=== PATIENT | female | born 1965 | race Caucasian/White ===

== ENCOUNTER 2018-05-04 11:28 | Inpatient (IN) | payer MEDICAID, OTHER, SELFPAY ==
[2018-05-04] VITALS (24 sets, daily range): BP systolic 80–102; BP diastolic 42–58; PULSE 78–114; RESP 11–20; TEMP 37–39.2; O2SAT 93–100; BMI 23.5
--- NOTE | 2018-05-04 11:44 | DI.RAD.S_ITS ---
PROCEDURE: XR CHEST 1V INDICATIONS: suspected sepsis TECHNIQUE: One view of the chest was acquired. COMPARISON: None. FINDINGS: Surgical changes and devices: None. Lungs and pleura: Ill-defined pulmonary radiopacities are present at the right lung base. There is a small right pleural effusion. The lungs are otherwise clear. Mediastinum: Mediastinal contours appear normal. Heart size is normal. Bones and chest wall: No suspicious bony lesions. Overlying soft tissues appear unremarkable. IMPRESSION: Right pulmonary radiopacities effusion suspicious for pneumonia. Short interval followup is recommended with resolution of the patient's symptoms to ensure there is no underlying pulmonary pathology. Dictated by: Lavern Bauer M.D. on 05/04/2018 at 12:11 Approved by: Lavern Bauer M.D. on 05/04/2018 at 12:12
[2018-05-04 11:51] LABS: Add Manual Diff / Slide Review NO; Basophils Percent Auto 0.2 % (0-2); Eosinophils Percent Auto 0.6 % (2-4); Hematocrit 28.8 % (36-46); Hemoglobin 9.2 g/dL (12.0-16.0); Mean Corpuscular Hemoglobin 24.7 PG (26-34); Mean Corpuscular Volume 77.2 fL (80-100); Monocytes Percent Auto 5.2 % (3-14); Neutrophils Absolute Auto 11400 /uL (3000-5900); Platelet Count 290 X10^3/uL (150-400); Red Blood Cell Count 3.73 X10^6/uL (4.0-5.2)
[2018-05-04 11:58] LABS: INR 1.4 (0.9-1.3); Prothrombin Time 15.3 SECONDS (10.1-12.7)
[2018-05-04 12:01] LABS: PTT Partial Thromboplastin Tim 36 SECONDS (26.4-36.2)
[2018-05-04 12:07] LABS: Lactate (Lactic Acid) 0.7 mmol/L (0.7-2.1)
[2018-05-04 12:08] LABS: Alanine Aminotransferase 20 IU/L (9-52); Albumin 3.3 g/dL (3.5-5.0); Albumin Globulin Ratio 1.1 (1.0-2.8); Alkaline Phosphatase 116 U/L (38-126); Aspartate Aminotransferase 12 IU/L (14-36); BUN Creatinine Ratio 12.3 (6-22); Bilirubin Total 0.4 mg/dL (0.2-1.3); Blood Urea Nitrogen 16 mg/dL (7-17); Calcium 8.3 mg/dL (8.4-10.2); Carbon Dioxide 29 mmol/L (22-32); Chloride 100 mmol/L (98-107); Estimated Glomerular Filt Rate 42.8 mL/min (>60); Globulin 2.9 g/dL (1.7-4.1); Glucose 105 mg/dL (70-100); HEMOLYSIS < 15 (0-50); Potassium 4.6 mmol/L (3.4-5.1); Sodium 139 mmol/L (137-145); Total Protein 6.2 g/dL (6.3-8.2)
[2018-05-04 12:09] LABS: Lipase < 10 U/L (23-300)
[2018-05-04] MEDS: SODIUM CHLORIDE 0.9% 1,000 ML 1000 ML IV (12:15)
[2018-05-04 12:23] LABS: Procalcitonin 0.51 ng/mL (<0.5)
[2018-05-04] MEDS: ACETAMINOPHEN SUSP 160 MG/5 ML UDC 1020 MG PO (12:36)
[2018-05-04 13:19] LABS: Appearance Urine UA CLOUDY; Color Urine UA Yellow; Glucose Urine UA Normal (Normal); Protein Urine UA 1+ (Negative); Specific Gravity Urine UA <1.005 (1.000-1.035); pH Urine UA 6.5 (4.5-8.0)
[2018-05-04 13:20] LABS: Bilirubin Urine UA Negative (NEGATIVE); Ketones Urine UA NEGATIVE (NEGATIVE); Leukocyte Esterase Urine UA 2+ (NEGATIVE); Nitrite Urine UA POSITIVE (Negative); Occult Blood Urine UA 3+ (Negative)
[2018-05-04 13:21] LABS: Amorphous Sediment Urine 1+; Bacteria Urine Many (>30); Culture Indicated Urine Specimen Cultured; Mucus Urine 2+ (Negative); RBC Urine 5-10/HPF (0-5/HPF); Renal Epithelial Cells Urine 1-5/HPF; Squamous Epithelial Cell Urine 1-5 /HPF; WBC Urine >100/HPF (0-5/HPF)
--- NOTE | 2018-05-04 13:31 | ED.SOB ---
HPI - SOB/Dyspnea General Chief Complaint: Shortness of Breath/Dyspnea Stated Complaint: Decreased Stats / Caugh Time Seen by Provider: 05/04/18 13:14 Source: patient and family Mode of arrival: EMS Limitations: no limitations History of Present Illness This is a 53-year-old female who comes to the emergency department with complaint of cough it has been increasingly worse over the last day or 2. She has had decreased oxygen level. No fevers that she is aware of. She has had some mild headaches and neck pain but not severe. She denies any chest pain or pressure but does feel short of breath. She denies any nausea or vomiting. She does have a J tube in place denies any issues with her J tube recently. Patient has not had any signs of infection around that site. She is denying any abdominal pain although she states that she does sometimes have pain when she has problems with her Eisenberg catheter. She has not noticed any changes to the urine out put from her catheter such as blood or clots or purulent changes. Does not appeared more cloudy. No issues of skin breakdown. 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 Related Data Home Medications Medication Instructions Recorded Confirmed acetaminophen 1 - 2 tab FEEDING TUBE PRN PRN MDD 05/04/18 05/04/18 3000 mg elgmeit-ffskegcovrlvb-acrbtqgi 2 tab FEEDING TUBE DAILY PRN 05/04/18 05/04/18 [Excedrin Migraine] cetirizine 1 tab FEEDING TUBE DAILY PRN 05/04/18 05/04/18 dextromethorphan-guaifenesin 10 ml FEEDING TUBE Q4H PRN 05/04/18 05/04/18 [Tussin DM] diclofenac sodium 2 g TOPICAL TID PRN 05/04/18 05/04/18 fluticasone furoate 1 spray INTRANASAL DAILY PRN 05/04/18 05/04/18 levothyroxine 1 tab FEEDING TUBE DAILY 05/04/18 05/04/18 loperamide 2 cap FEEDING TUBE Q4H PRN MDD 16 05/04/18 05/04/18 MG methadone 15 mg FEEDING TUBE TID 05/04/18 05/04/18 miconazole nitrate 1 applic VAGINAL PRN PRN 05/04/18 05/04/18 miconazole nitrate [Shayna 1 applic TOPICAL 3-4XD 05/04/18 05/04/18 Antifungal] ondansetron 1 tab FEEDING TUBE PRN PRN 05/04/18 05/04/18 oxycodone 1 - 2 tab FEEDING TUBE Q3H PRN MDD 05/04/18 05/04/18 8 tabs polyethylene glycol 3350 [Miralax] 8.5 g FEEDING TUBE DAILY PRN 05/04/18 05/04/18 pregabalin [Lyrica] 1 cap FEEDING TUBE TID 05/04/18 05/04/18 sertraline 7.5 ml FEEDING TUBE QPM 05/04/18 05/04/18 thiamine HCl (vitamin B1) 100 mg FEEDING TUBE DAILY 05/04/18 05/04/18 trazodone 1 tab FEEDING TUBE BEDTIME 05/04/18 05/04/18 water 100 ml PO QID 05/04/18 05/04/18 Allergies Allergy/AdvReac Type Severity Reaction Status Date / Time clindamycin Allergy Severe Anaphylaxis Verified 05/04/18 12:34 Penicillins Allergy Severe Anaphylaxis Verified 05/04/18 12:33 Review of Systems Review of Systems All systems reviewed & are unremarkable except as noted in HPI and below Constitutional Denies chills, Denies fever(s), Reports headache(s) and Denies weakness ENT Ears, Nose, Mouth, and Throat: Reports headache(s), Denies nasal discharge and Reports neck pain (mild per patient) Cardiovascular Denies chest pain, Denies irregular heart rhythm, Denies lightheadedness, Denies palpitations, Denies dyspnea, Denies dyspnea on exertion and Denies orthopnea Respiratory Reports chest congestion, Reports cough, Denies hemoptysis, Denies excessive phlegm production, Denies pain on inspiration, Denies dyspnea, Denies dyspnea on exertion and Denies wheezing Gastrointestinal Gastrointestinal: Denies abdominal pain, Denies change in bowel habits, Denies diarrhea, Denies nausea, Denies vomiting and Reports other (J tube in place, no problems.) Genitourinary Denies hematuria, Denies pelvic pain and Reports other (no changes to eisenberg catheter drainage) Musculoskeletal Reports neck pain (mild per patient) Integumentary/Breasts Denies rash Neurologic Denies confusion, Reports headache(s) and Denies weakness Psychiatric Denies confusion Endocrine Denies palpitations Allergic/Immunologic Denies wheezing PFSH Medical History Bowel obstruction (Acute) Creutzfeldt Evans disease (Acute) H/O: hysterectomy (Acute) Hypothyroid (Acute) Jejunostomy tube present (Acute) Ovarian cancer (Acute) Reflux esophagitis (Acute) Uterine cancer (Acute) Surgical History H/O fasciotomy (Acute) H/O left knee surgery (Acute) Social History details: Lives in Adult Care facility Smoking Status: Former smoker alcohol intake: never Exam Narrative Exam Narrative: GENERAL: Alert and oriented x three, well-nourished female in mild distress. HEENT: Head normocephalic, atraumatic, EOMI, pupils reactive, face symmetric, moist mucous membranes, patient has nasal cannula in place. NECK: Supple, full range of motion, no meningeal signs. CARDIOVASCULAR: Regular rate and rhythm without murmurs, rubs or gallops. RESPIRATORY: Breath sounds equal bilaterally, no wheeze, positive crackles on the right base, no rhonchi. No tachypnea. Patient speaks in short sentences. ABDOMEN: Soft, nontender. Normoactive bowel sounds all 4 quadrants. No guarding or rebound, rigidity, no mass. Patient has a J-tube in place, there is no signs of erythema or cellulitis from the surrounding area. : No CVA tenderness, Eisenberg catheter in place draining yellow somewhat dark urine but not cloudy over signs of purulent EXTREMITIES: Normal range of motion, no clubbing or edema. Neurovascularly intact NEUROLOGICAL: Cranial nerves II through XII grossly intact. Moving all extremities. Patient has atrophy of the lower extremities and feet. She does not have full range of motion of her feet. SKIN: Warm, dry, no petechiae, no rashes or lesions. Initial Vital Signs Initial Vital Signs: Vital Signs Temperature 102.5 F H 05/04/18 11:34 Pulse Rate 107 H 05/04/18 11:34 Respiratory Rate 18 05/04/18 11:34 Blood Pressure 98/49 L 05/04/18 11:34 Pulse Oximetry 93 05/04/18 11:34 Course Orders Ordered: ED Orders 05/04/18 11:40 Complete Blood Count AUTO DIFF Stat Comprehensive Metabolic Panel Stat Lactate (Lactic Acid) Stat Lipase Stat Partial Thromboplastin Time Stat Procalcitonin Stat Prothrombin Time INR Stat 05/04/18 11:44 XR chest 1V Stat 05/04/18 12:01 Blood Culture Stat 05/04/18 12:11 EKG-12 Lead Stat 05/04/18 13:00 UA Complete [Urinalysis and Microscopic] Stat Urine Culture Stat 05/04/18 18:31 Consult to Pastoral Services Routine Sodium Chloride (Normal Saline 0.9%) 2,041.17 mls @ 680.39 mls/hr 30 ml/kg infuse over 3 hr (2041.17 ml) IV CONT DEBO Last Infusion: 05/04/18 17:04 Dose: 150 mls/hr Infusion: 05/04/18 15:17 Dose: 150 mls/hr Infusion: 05/04/18 15:07 Dose: 680 mls/hr Infusion: 05/04/18 14:09 Dose: 999 mls/hr Admin: 05/04/18 13:49 Dose: 680.39 mls/hr Oxycodone/Acetaminophen (Percocet 5/325) 1 tab PO Q4HR PRN PRN Reason: Pain, Moderate (4-6) Discontinued Medications Acetaminophen (Tylenol Susp) 1,020 mg 15 mg/kg (1020 mg) PO NOW ONE Stop: 05/04/18 12:35 Last Admin: 05/04/18 12:36 Dose: 1,020 mg Sodium Chloride (Normal Saline 0.9%) 1,000 mls @ 1,000 mls/hr IV BOLUS ONE Stop: 05/04/18 12:43 Last Infusion: 05/04/18 13:18 Dose: 0 mls/hr Admin: 05/04/18 12:15 Dose: 1,000 mls/hr Levofloxacin (Levaquin) 750 mg in 150 mls @ 100 mls/hr IV NOW ONE Stop: 05/04/18 15:03 Last Infusion: 05/04/18 15:35 Dose: 0 mls/hr Admin: 05/04/18 13:54 Dose: 100 mls/hr Oxycodone HCl (Percolone) 10 mg PO NOW ONE Stop: 05/04/18 13:40 Last Admin: 05/04/18 14:59 Dose: Vital Signs - 8 hr 05/04/18 12:00 05/04/18 12:30 05/04/18 12:36 Temperature 102.5 F H Pulse Rate 96 H 103 H Respiratory Rate 14 17 Blood Pressure Blood Pressure [Left Arm] 89/53 L 87/50 L Pulse Oximetry 93 96 05/04/18 12:46 05/04/18 13:00 05/04/18 13:30 Temperature Pulse Rate 93 H 92 H 90 Respiratory Rate 11 L 14 15 Blood Pressure Blood Pressure [Left Arm] 87/50 L 90/45 L 85/46 L Pulse Oximetry 96 96 97 05/04/18 14:08 05/04/18 14:09 05/04/18 14:15 Temperature 99.9 F H 99.9 F H Pulse Rate 83 82 Respiratory Rate 20 15 Blood Pressure Blood Pressure [Left Arm] 81/42 L 82/51 L Pulse Oximetry 94 98 05/04/18 14:17 05/04/18 14:30 05/04/18 14:43 Temperature Pulse Rate 87 80 82 Respiratory Rate 15 16 17 Blood Pressure Blood Pressure [Left Arm] 82/51 L 86/54 L 86/54 L Pulse Oximetry 98 99 99 05/04/18 15:16 05/04/18 16:00 05/04/18 16:04 Temperature Pulse Rate 80 78 79 Respiratory Rate 11 L 18 Blood Pressure Blood Pressure [Left Arm] 80/49 L 82/52 L 82/52 L Pulse Oximetry 100 98 05/04/18 16:30 05/04/18 17:00 05/04/18 17:05 Temperature Pulse Rate 98 H 97 H 114 H Respiratory Rate 15 16 16 Blood Pressure Blood Pressure [Left Arm] 86/55 L 87/52 L 87/52 L Pulse Oximetry 100 95 93 05/04/18 19:23 Temperature 98.6 F Pulse Rate 85 Respiratory Rate 16 Blood Pressure 95/56 L Blood Pressure [Left Arm] Pulse Oximetry 100 MDM - SOB/Dyspnea Lab Data Attestation: I reviewed the patient's lab results. Result diagrams: 05/04/18 11:40 05/04/18 11:40 Lab Results 05/04/18 05/04/18 05/04/18 Range/Units 11:40 11:40 11:40 WBC 13.0 H (4.5-11.0) X10^3/uL RBC 3.73 L (4.0-5.2) X10^6/uL Hgb 9.2 L (12.0-16.0) g/dL Hct 28.8 L (36-46) % MCV 77.2 L (80-100) fL MCH 24.7 L (26-34) PG MCHC 32.0 (30-36) % RDW 16.0 H (11.6-14.8) % Plt Count 290 (150-400) X10^3/uL Neut % (Auto) 88.0 H (50-75) % Lymph % (Auto) 6.0 L (25-40) % [place] % (Auto) 5.2 (3-14) % Eos % (Auto) 0.6 L (2-4) % Baso % (Auto) 0.2 (0-2) % Neut # (Auto) 61755 H (2161-3009) /uL PT 15.3 H (10.1-12.7) SECONDS INR 1.4 H (0.9-1.3) APTT 36 (26.4-36.2) SECONDS Sodium (137-145) mmol/L Potassium (3.4-5.1) mmol/L Chloride (98-107) mmol/L Carbon Dioxide (22-32) mmol/L BUN (7-17) mg/dL Creatinine (0.52-1.04) mg/dL Estimated GFR (>60) mL/min BUN/Creatinine Ratio (6-22) Glucose (70-100) mg/dL Lactate (0.7-2.1) mmol/L Calcium (8.4-10.2) mg/dL Total Bilirubin (0.2-1.3) mg/dL AST (14-36) IU/L ALT (9-52) IU/L Alkaline Phosphatase (38-126) U/L Total Protein (6.3-8.2) g/dL Albumin (3.5-5.0) g/dL Globulin (1.7-4.1) g/dL Albumin/Globulin Ratio (1.0-2.8) Lipase (23-300) U/L Procalcitonin 0.51 H (<0.5) ng/mL Urine Color Urine Appearance Urine pH (4.5-8.0) Ur Specific [place] (1.000-1.035) Urine Protein (Negative) Urine Glucose (UA) (Normal) g/dL Urine Ketones (NEGATIVE) Urine Occult Blood (Negative) Urine Nitrate (Negative) Urine Bilirubin (NEGATIVE) Urine Urobilinogen (0.2) E.U./dL Ur Leukocyte Esterase (NEGATIVE) Urine RBC (0-5/HPF) Urine WBC (0-5/HPF) Ur Squamous Epith Cells Ur Renal Epithelial Cell Amorphous Sediment Urine Bacteria (None) Urine Mucus (Negative) Ur Culture Indicated? Micro UA Comment 05/04/18 05/04/18 05/04/18 Range/Units 11:40 11:40 13:00 WBC (4.5-11.0) X10^3/uL RBC (4.0-5.2) X10^6/uL Hgb (12.0-16.0) g/dL Hct (36-46) % MCV (80-100) fL MCH (26-34) PG MCHC (30-36) % RDW (11.6-14.8) % Plt Count (150-400) X10^3/uL Neut % (Auto) (50-75) % Lymph % (Auto) (25-40) % [place] % (Auto) (3-14) % Eos % (Auto) (2-4) % Baso % (Auto) (0-2) % Neut # (Auto) (9334-3289) /uL PT (10.1-12.7) SECONDS INR (0.9-1.3) APTT (26.4-36.2) SECONDS Sodium 139 (137-145) mmol/L Potassium 4.6 (3.4-5.1) mmol/L Chloride 100 (98-107) mmol/L Carbon Dioxide 29 (22-32) mmol/L BUN 16 (7-17) mg/dL Creatinine 1.30 H (0.52-1.04) mg/dL Estimated GFR 42.8 L (>60) mL/min BUN/Creatinine Ratio 12.3 (6-22) Glucose 105 H (70-100) mg/dL Lactate 0.7 (0.7-2.1) mmol/L Calcium 8.3 L (8.4-10.2) mg/dL Total Bilirubin 0.4 (0.2-1.3) mg/dL AST 12 L (14-36) IU/L ALT 20 (9-52) IU/L Alkaline Phosphatase 116 (38-126) U/L Total Protein 6.2 L (6.3-8.2) g/dL Albumin 3.3 L (3.5-5.0) g/dL Globulin 2.9 (1.7-4.1) g/dL Albumin/Globulin Ratio 1.1 (1.0-2.8) Lipase < 10 L (23-300) U/L Procalcitonin (<0.5) ng/mL Urine Color Yellow Urine Appearance Cloudy Urine pH 6.5 (4.5-8.0) Ur Specific [place] <1.005 (1.000-1.035) Urine Protein 1+ H (Negative) Urine Glucose (UA) Normal (Normal) g/dL Urine Ketones Negative (NEGATIVE) Urine Occult Blood 3+ H (Negative) Urine Nitrate Positive H (Negative) Urine Bilirubin Negative (NEGATIVE) Urine Urobilinogen 1.0 (0.2) E.U./dL Ur Leukocyte Esterase 2+ H (NEGATIVE) Urine RBC 5-10/hpf H (0-5/HPF) Urine WBC >100/hpf H (0-5/HPF) Ur Squamous Epith Cells 1-5 /hpf Ur Renal Epithelial Cell 1-5/hpf Amorphous Sediment 1+ Urine Bacteria Many (>30) H (None) Urine Mucus 2+ H (Negative) Ur Culture Indicated? Specimen cultured Micro UA Comment Not Reportable Imaging Data Chest x-ray: Radiologist's impression: [address] [id number] XRay Report Signed Patient: Castillo Sanders RMR#: [id number] : 1965Acct:[id number] Age/Sex: 53 / FDate of Service: 05/04/18 Loc: ED Accession Number: [id number] Procedure: XR chest 1V Ordering Provider: Maribel Maldonado D.O. PROCEDURE: XR CHEST 1V INDICATIONS: suspected sepsis TECHNIQUE: One view of the chest was acquired. COMPARISON: None. FINDINGS: Surgical changes and devices: None. Lungs and pleura: Ill-defined pulmonary radiopacities are present at the right lung base. There is a small right pleural effusion. The lungs are otherwise clear. Mediastinum: Mediastinal contours appear normal. Heart size is normal. Bones and chest wall: No suspicious bony lesions. Overlying soft tissues appear unremarkable. IMPRESSION: Right pulmonary radiopacities effusion suspicious for pneumonia. Short interval followup is recommended with resolution of the patient's symptoms to ensure there is no underlying pulmonary pathology. Dictated by: Lavern Bauer M.D. on 05/04/2018 at 12:11 Approved by: Lavern Bauer M.D. on 05/04/2018 at 12:12 ECG Data Attestation: I personally reviewed and interpreted this ECG as follows: Interpretation: Sinus rhythm with short P are, rate of 96, DC 93, QRS of 86 and QTC of 419. No ST changes appreciated MDM Narrative Medical decision making narrative: Patient does have an elevated white count although not quite meeting septic criteria. She does have a fever in the department her heart rate was above 90 at 1 point although has been consistently in the 80s. Her blood pressure is low in the 80s although according to her and her people at bedside her normal systolic is about 100-105. Patient does not appear toxic at this time and seems to be tolerating her symptoms well. She responded to oxygen well and was 88% with EMS prior to oxygen and initially on arrival to department. Patient had antibiotics started, Tylenol for fever. She has received a 30 cc/kilos fluids and plan for admission. Spoke with Dr. Hall who except patient plan for floor at this time which I think is appropriate. Discharge Plan Departure Patient Disposition: Admitted As Inpatient Clinical Impression: Sepsis, Pneumonia Discharge Date/Time: 05/04/18 17:24 Interventions: ED Discharge Assessment Last Done: 05/04/18 17:06 Admit Date/Time: 05/04/18 15:03 Admit Provider: Cass Hall
--- NOTE | 2018-05-04 13:39 | ED_ITS ---
HPI - SOB/Dyspnea General Chief Complaint: Shortness of Breath/Dyspnea Stated Complaint: Decreased Stats / Caugh Time Seen by Provider: 05/04/18 13:14 Source: patient and family Mode of arrival: EMS Limitations: no limitations History of Present Illness This is a 53-year-old female who comes to the emergency department with complaint of cough it has been increasingly worse over the last day or 2. She has had decreased oxygen level. No fevers that she is aware of. She has had some mild headaches and neck pain but not severe. She denies any chest pain or pressure but does feel short of breath. She denies any nausea or vomiting. She does have a J tube in place denies any issues with her J tube recently. Patient has not had any signs of infection around that site. She is denying any abdominal pain although she states that she does sometimes have pain when she has problems with her Eisenberg catheter. She has not noticed any changes to the urine out put from her catheter such as blood or clots or purulent changes. Does not appeared more cloudy. No issues of skin breakdown. 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 Related Data Home Medications Medication Instructions Recorded Confirmed acetaminophen 1 - 2 tab FEEDING TUBE PRN PRN MDD 05/04/18 05/04/18 3000 mg ydajxsj-elvqevsbgnmwo-gzrglhou 2 tab FEEDING TUBE DAILY PRN 05/04/18 05/04/18 [Excedrin Migraine] cetirizine 1 tab FEEDING TUBE DAILY PRN 05/04/18 05/04/18 dextromethorphan-guaifenesin 10 ml FEEDING TUBE Q4H PRN 05/04/18 05/04/18 [Tussin DM] diclofenac sodium 2 g TOPICAL TID PRN 05/04/18 05/04/18 fluticasone furoate 1 spray INTRANASAL DAILY PRN 05/04/18 05/04/18 levothyroxine 1 tab FEEDING TUBE DAILY 05/04/18 05/04/18 loperamide 2 cap FEEDING TUBE Q4H PRN MDD 16 05/04/18 05/04/18 MG methadone 15 mg FEEDING TUBE TID 05/04/18 05/04/18 miconazole nitrate 1 applic VAGINAL PRN PRN 05/04/18 05/04/18 miconazole nitrate [Shayna 1 applic TOPICAL 3-4XD 05/04/18 05/04/18 Antifungal] ondansetron 1 tab FEEDING TUBE PRN PRN 05/04/18 05/04/18 oxycodone 1 - 2 tab FEEDING TUBE Q3H PRN MDD 05/04/18 05/04/18 8 tabs polyethylene glycol 3350 [Miralax] 8.5 g FEEDING TUBE DAILY PRN 05/04/18 pregabalin [Lyrica] 1 cap FEEDING TUBE TID 05/04/18 05/04/18 sertraline 7.5 ml FEEDING TUBE QPM 05/04/18 05/04/18 thiamine HCl (vitamin B1) 100 mg FEEDING TUBE DAILY 05/04/18 05/04/18 trazodone 1 tab FEEDING TUBE BEDTIME 05/04/18 05/04/18 water 100 ml PO QID 05/04/18 05/04/18 Allergies Allergy/AdvReac Type Severity Reaction Status Date / Time clindamycin Allergy Severe Anaphylaxis Verified 05/04/18 12:34 Penicillins Allergy Severe Anaphylaxis Verified 05/04/18 12:33 Review of Systems Review of Systems All systems reviewed & are unremarkable except as noted in HPI and below Constitutional Denies chills, Denies fever(s), Reports headache(s) and Denies weakness ENT Ears, Nose, Mouth, and Throat: Reports headache(s), Denies nasal discharge and Reports neck pain (mild per patient) Cardiovascular Denies chest pain, Denies irregular heart rhythm, Denies lightheadedness, Denies palpitations, Denies dyspnea, Denies dyspnea on exertion and Denies orthopnea Respiratory Reports chest congestion, Reports cough, Denies hemoptysis, Denies excessive phlegm production, Denies pain on inspiration, Denies dyspnea, Denies dyspnea on exertion and Denies wheezing Gastrointestinal Gastrointestinal: Denies abdominal pain, Denies change in bowel habits, Denies diarrhea, Denies nausea, Denies vomiting and Reports other (J tube in place, no problems.) Genitourinary Denies hematuria, Denies pelvic pain and Reports other (no changes to eisenberg catheter drainage) Musculoskeletal Reports neck pain (mild per patient) Integumentary/Breasts Denies rash Neurologic Denies confusion, Reports headache(s) and Denies weakness Psychiatric Denies confusion Endocrine Denies palpitations Allergic/Immunologic Denies wheezing PFSH Medical History Bowel obstruction (Acute) Creutzfeldt Evans disease (Acute) H/O: hysterectomy (Acute) Hypothyroid (Acute) Jejunostomy tube present (Acute) Ovarian cancer (Acute) Reflux esophagitis (Acute) Uterine cancer (Acute) Surgical History H/O fasciotomy (Acute) H/O left knee surgery (Acute) Social History details: Lives in Adult Care facility Smoking Status: Former smoker alcohol intake: never Exam Narrative Exam Narrative: GENERAL: Alert and oriented x three, well-nourished female in mild distress. HEENT: Head normocephalic, atraumatic, EOMI, pupils reactive, face symmetric, moist mucous membranes, patient has nasal cannula in place. NECK: Supple, full range of motion, no meningeal signs. CARDIOVASCULAR: Regular rate and rhythm without murmurs, rubs or gallops. RESPIRATORY: Breath sounds equal bilaterally, no wheeze, positive crackles on the right base, no rhonchi. No tachypnea. Patient speaks in short sentences. ABDOMEN: Soft, nontender. Normoactive bowel sounds all 4 quadrants. No guarding or rebound, rigidity, no mass. Patient has a J-tube in place, there is no signs of erythema or cellulitis from the surrounding area. : No CVA tenderness, Eisenberg catheter in place draining yellow somewhat dark urine but not cloudy over signs of purulent EXTREMITIES: Normal range of motion, no clubbing or edema. Neurovascularly intact NEUROLOGICAL: Cranial nerves II through XII grossly intact. Moving all extremities. Patient has atrophy of the lower extremities and feet. She does not have full range of motion of her feet. SKIN: Warm, dry, no petechiae, no rashes or lesions. Initial Vital Signs Initial Vital Signs: Vital Signs Temperature 102.5 F H 05/04/18 11:34 Pulse Rate 107 H 05/04/18 11:34 Respiratory Rate 18 05/04/18 11:34 Blood Pressure 98/49 L 05/04/18 11:34 Pulse Oximetry 93 05/04/18 11:34 Course Orders Ordered: ED Orders 05/04/18 11:40 Complete Blood Count AUTO DIFF Stat Comprehensive Metabolic Panel Stat Lactate (Lactic Acid) Stat Lipase Stat Partial Thromboplastin Time Stat Procalcitonin Stat Prothrombin Time INR Stat 05/04/18 11:44 XR chest 1V Stat 05/04/18 12:01 Blood Culture Stat 05/04/18 12:11 EKG-12 Lead Stat 05/04/18 13:00 UA Complete [Urinalysis and Microscopic] Stat Urine Culture Stat 05/04/18 18:31 Consult to Pastoral Services Routine Sodium Chloride (Normal Saline 0.9%) 2,041.17 mls @ 680.39 mls/hr 30 ml/kg infuse over 3 hr (2041.17 ml) IV CONT DEBO Last Infusion: 05/04/18 17:04 Dose: 150 mls/hr Infusion: 05/04/18 15:17 Dose: 150 mls/hr Infusion: 05/04/18 15:07 Dose: 680 mls/hr Infusion: 05/04/18 14:09 Dose: 999 mls/hr Admin: 05/04/18 13:49 Dose: 680.39 mls/hr Oxycodone/Acetaminophen (Percocet 5/325) 1 tab PO Q4HR PRN PRN Reason: Pain, Moderate (4-6) Discontinued Medications Acetaminophen (Tylenol Susp) 1,020 mg 15 mg/kg (1020 mg) PO NOW ONE Stop: 05/04/18 12:35 Last Admin: 05/04/18 12:36 Dose: 1,020 mg Sodium Chloride (Normal Saline 0.9%) 1,000 mls @ 1,000 mls/hr IV BOLUS ONE Stop: 05/04/18 12:43 Last Infusion: 05/04/18 13:18 Dose: 0 mls/hr Admin: 05/04/18 12:15 Dose: 1,000 mls/hr Levofloxacin (Levaquin) 750 mg in 150 mls @ 100 mls/hr IV NOW ONE Stop: 05/04/18 15:03 Last Infusion: 05/04/18 15:35 Dose: 0 mls/hr Admin: 05/04/18 13:54 Dose: 100 mls/hr Oxycodone HCl (Percolone) 10 mg PO NOW ONE Stop: 05/04/18 13:40 Last Admin: 05/04/18 14:59 Dose: Vital Signs - 8 hr 05/04/18 12:00 05/04/18 12:30 05/04/18 12:36 Temperature 102.5 F H Pulse Rate 96 H 103 H Respiratory Rate 14 17 Blood Pressure Blood Pressure [Left Arm] 89/53 L 87/50 L Pulse Oximetry 93 96 05/04/18 12:46 05/04/18 13:00 05/04/18 13:30 Temperature Pulse Rate 93 H 92 H 90 Respiratory Rate 11 L 14 15 Blood Pressure Blood Pressure [Left Arm] 87/50 L 90/45 L 85/46 L Pulse Oximetry 96 96 97 05/04/18 14:08 05/04/18 14:09 05/04/18 14:15 Temperature 99.9 F H 99.9 F H Pulse Rate 83 82 Respiratory Rate 20 15 Blood Pressure Blood Pressure [Left Arm] 81/42 L 82/51 L Pulse Oximetry 94 98 05/04/18 14:17 05/04/18 14:30 05/04/18 14:43 Temperature Pulse Rate 87 80 82 Respiratory Rate 15 16 17 Blood Pressure Blood Pressure [Left Arm] 82/51 L 86/54 L 86/54 L Pulse Oximetry 98 99 99 05/04/18 15:16 05/04/18 16:00 05/04/18 16:04 Temperature Pulse Rate 80 78 79 Respiratory Rate 11 L 18 Blood Pressure Blood Pressure [Left Arm] 80/49 L 82/52 L 82/52 L Pulse Oximetry 100 98 05/04/18 16:30 05/04/18 17:00 05/04/18 17:05 Temperature Pulse Rate 98 H 97 H 114 H Respiratory Rate 15 16 16 Blood Pressure Blood Pressure [Left Arm] 86/55 L 87/52 L 87/52 L Pulse Oximetry 100 95 93 05/04/18 19:23 Temperature 98.6 F Pulse Rate 85 Respiratory Rate 16 Blood Pressure 95/56 L Blood Pressure [Left Arm] Pulse Oximetry 100 MDM - SOB/Dyspnea Lab Data Attestation: I reviewed the patient's lab results. Result diagrams: 05/04/18 11:40 05/04/18 11:40 Lab Results 05/04/18 05/04/18 05/04/18 Range/Units 11:40 11:40 11:40 WBC 13.0 H (4.5-11.0) X10^3/uL RBC 3.73 L (4.0-5.2) X10^6/uL Hgb 9.2 L (12.0-16.0) g/dL Hct 28.8 L (36-46) % MCV 77.2 L (80-100) fL MCH 24.7 L (26-34) PG MCHC 32.0 (30-36) % RDW 16.0 H (11.6-14.8) % Plt Count 290 (150-400) X10^3/uL Neut % (Auto) 88.0 H (50-75) % Lymph % (Auto) 6.0 L (25-40) % Citrus % (Auto) 5.2 (3-14) % Eos % (Auto) 0.6 L (2-4) % Baso % (Auto) 0.2 (0-2) % Neut # (Auto) 07242 H (1192-6120) /uL PT 15.3 H (10.1-12.7) SECONDS INR 1.4 H (0.9-1.3) APTT 36 (26.4-36.2) SECONDS Sodium (137-145) mmol/L Potassium (3.4-5.1) mmol/L Chloride (98-107) mmol/L Carbon Dioxide (22-32) mmol/L BUN (7-17) mg/dL Creatinine (0.52-1.04) mg/dL Estimated GFR (>60) mL/min BUN/Creatinine Ratio (6-22) Glucose (70-100) mg/dL Lactate (0.7-2.1) mmol/L Calcium (8.4-10.2) mg/dL Total Bilirubin (0.2-1.3) mg/dL AST (14-36) IU/L ALT (9-52) IU/L Alkaline Phosphatase (38-126) U/L Total Protein (6.3-8.2) g/dL Albumin (3.5-5.0) g/dL Globulin (1.7-4.1) g/dL Albumin/Globulin Ratio (1.0-2.8) Lipase (23-300) U/L Procalcitonin 0.51 H (<0.5) ng/mL Urine Color Urine Appearance Urine pH (4.5-8.0) Ur Specific Milo (1.000-1.035) Urine Protein (Negative) Urine Glucose (UA) (Normal) g/dL Urine Ketones (NEGATIVE) Urine Occult Blood (Negative) Urine Nitrate (Negative) Urine Bilirubin (NEGATIVE) Urine Urobilinogen (0.2) E.U./dL Ur Leukocyte Esterase (NEGATIVE) Urine RBC (0-5/HPF) Urine WBC (0-5/HPF) Ur Squamous Epith Cells Ur Renal Epithelial Cell Amorphous Sediment Urine Bacteria (None) Urine Mucus (Negative) Ur Culture Indicated? Micro UA Comment 05/04/18 05/04/18 05/04/18 Range/Units 11:40 11:40 13:00 WBC (4.5-11.0) X10^3/uL RBC (4.0-5.2) X10^6/uL Hgb (12.0-16.0) g/dL Hct (36-46) % MCV (80-100) fL MCH (26-34) PG MCHC (30-36) % RDW (11.6-14.8) % Plt Count (150-400) X10^3/uL Neut % (Auto) (50-75) % Lymph % (Auto) (25-40) % Citrus % (Auto) (3-14) % Eos % (Auto) (2-4) % Baso % (Auto) (0-2) % Neut # (Auto) (9088-0361) /uL PT (10.1-12.7) SECONDS INR (0.9-1.3) APTT (26.4-36.2) SECONDS Sodium 139 (137-145) mmol/L Potassium 4.6 (3.4-5.1) mmol/L Chloride 100 (98-107) mmol/L Carbon Dioxide 29 (22-32) mmol/L BUN 16 (7-17) mg/dL Creatinine 1.30 H (0.52-1.04) mg/dL Estimated GFR 42.8 L (>60) mL/min BUN/Creatinine Ratio 12.3 (6-22) Glucose 105 H (70-100) mg/dL Lactate 0.7 (0.7-2.1) mmol/L Calcium 8.3 L (8.4-10.2) mg/dL Total Bilirubin 0.4 (0.2-1.3) mg/dL AST 12 L (14-36) IU/L ALT 20 (9-52) IU/L Alkaline Phosphatase 116 (38-126) U/L Total Protein 6.2 L (6.3-8.2) g/dL Albumin 3.3 L (3.5-5.0) g/dL Globulin 2.9 (1.7-4.1) g/dL Albumin/Globulin Ratio 1.1 (1.0-2.8) Lipase < 10 L (23-300) U/L Procalcitonin (<0.5) ng/mL Urine Color Yellow Urine Appearance Cloudy Urine pH 6.5 (4.5-8.0) Ur Specific Milo <1.005 (1.000-1.035) Urine Protein 1+ H (Negative) Urine Glucose (UA) Normal (Normal) g/dL Urine Ketones Negative (NEGATIVE) Urine Occult Blood 3+ H (Negative) Urine Nitrate Positive H (Negative) Urine Bilirubin Negative (NEGATIVE) Urine Urobilinogen 1.0 (0.2) E.U./dL Ur Leukocyte Esterase 2+ H (NEGATIVE) Urine RBC 5-10/hpf H (0-5/HPF) Urine WBC >100/hpf H (0-5/HPF) Ur Squamous Epith Cells 1-5 /hpf Ur Renal Epithelial Cell 1-5/hpf Amorphous Sediment 1+ Urine Bacteria Many (>30) H (None) Urine Mucus 2+ H (Negative) Ur Culture Indicated? Specimen cultured Micro UA Comment Not Reportable Imaging Data Chest x-ray: Radiologist's impression: [address] [address] XRay Report Signed Patient: Castillo Sanders RMR#: [id number] : 1965Acct:[id number] Age/Sex: 53 / FDate of Service: 05/04/18 Loc: ED Accession Number: [id number] Procedure: XR chest 1V Ordering Provider: Maribel Maldonado D.O. PROCEDURE: XR CHEST 1V INDICATIONS: suspected sepsis TECHNIQUE: One view of the chest was acquired. COMPARISON: None. FINDINGS: Surgical changes and devices: None. Lungs and pleura: Ill-defined pulmonary radiopacities are present at the right lung base. There is a small right pleural effusion. The lungs are otherwise clear. Mediastinum: Mediastinal contours appear normal. Heart size is normal. Bones and chest wall: No suspicious bony lesions. Overlying soft tissues appear unremarkable. IMPRESSION: Right pulmonary radiopacities effusion suspicious for pneumonia. Short interval followup is recommended with resolution of the patient's symptoms to ensure there is no underlying pulmonary pathology. Dictated by: Lavern Bauer M.D. on 05/04/2018 at 12:11 Approved by: Lavern Bauer M.D. on 05/04/2018 at 12:12 ECG Data Attestation: I personally reviewed and interpreted this ECG as follows: Interpretation: Sinus rhythm with short P are, rate of 96, UT 93, QRS of 86 and QTC of 419. No ST changes appreciated MDM Narrative Medical decision making narrative: Patient does have an elevated white count although not quite meeting septic criteria. She does have a fever in the department her heart rate was above 90 at 1 point although has been consistently in the 80s. Her blood pressure is low in the 80s although according to her and her people at bedside her normal systolic is about 100- 105. Patient does not appear toxic at this time and seems to be tolerating her symptoms well. She responded to oxygen well and was 88% with EMS prior to oxygen and initially on arrival to department. Patient had antibiotics started , Tylenol for fever. She has received a 30 cc/kilos fluids and plan for admission. Spoke with Dr. Hall who except patient plan for floor at this time which I think is appropriate. Discharge Plan Departure Patient Disposition: Admitted As Inpatient Clinical Impression: Sepsis, Pneumonia Discharge Date/Time: 05/04/18 17:24 Interventions: ED Discharge Assessment Last Done: 05/04/18 17:06 Admit Date/Time: 05/04/18 15:03 Admit Provider: Cass Hall
[2018-05-04] MEDS: SODIUM CHLORIDE 0.9% 2,041.17 ML 680.39 ML IV (13:49)
[2018-05-04] MEDS: levoFLOXacin 750 MG/150 ML PIGGYBACK 100 MG IV (13:54)
--- NOTE | 2018-05-04 14:09 | PC.NURSE ---
pt states, condition the same, feeling generalized weakness, hurst everywhere.
--- NOTE | 2018-05-04 14:10 | PC.NURSE ---
tolerating drinking water po.
--- NOTE | 2018-05-04 14:44 | PC.NURSE ---
tolerating ice water po
--- NOTE | 2018-05-04 14:52 | PC.NURSE ---
called [facility] , per pts permission, may give information. when discharging, pt is with [facility], fax [phone] under Gisselle Schroeder ANRP [phone]
--- NOTE | 2018-05-04 15:09 | PC.NURSE ---
total infused ns 2liter, 3rd infusing at 640 for 50ml.
--- NOTE | 2018-05-04 15:17 | PC.NURSE ---
verbal order, ns at 150ml hr, dr pugh, aware of bp 80/49 hr 80
--- NOTE | 2018-05-04 17:12 | PC.NURSE ---
cloudy with foul smell
--- NOTE | 2018-05-04 20:56 | PM.HP.1 ---
History of Present Illness Date Patient Seen: 05/04/18 Time Patient Seen: 20:40 Chief complaint: Cough, hypoxia Narrative: The patient is a 53-year-old female with PMH significant for Creutchfeld Asa, fibromyalgia, chronic pain syndrome, h/o bowel obstruction (s/p resection, J-tube present), reflux esophagitis, migraine headaches, hypothyroidism, prior tobacco dependence, and h/o malignancy (ovarian and uterine). Patient is being transferred from an adult family out of concern for pneumonia. Specific symptoms included 1 week history of productive cough with worsening purulence (green/yellow) and hypoxia. Associated symptoms include dyspnea, pleurisy, headache, and neck pain. Patient is not known to have oxygen dependence. Patient is unable to recall if she has experienced chills. She reports being told of a fever earlier this morning prior to hospital presentation. Denies chest pain, palpitations, dizziness, lightheadedness, or syncopal events. She has not experienced abdominal pain, nausea, or vomiting. She is known to have diarrhea that is intermittent and does not report bowel movements being different from her baseline. Patient does have a J-tube in place. She is known to have routine migraine headaches for which she takes Excedrin. Headache she experiences at present time is of lesser magnitude then the headache she typically experiences. Reports neck discomfort which she describes as electrical vibes of cervical spine. Denies neck stiffness. Patient has some type of urinary dysfunction for which she requires a chronic Eisenberg catheter. Known to have a history of recurrent UTIs. Denies recent illness or hospitalizations. On presentation to ED found to be febrile and tachycardic. ED Work-UP WBC 13 Hgb 9.2 Plt 290 Na 139 K 4.6 Cl 100 Ca 8.3 CO2 29 Glu 105 BUN 16 sCr 1.3 GFR 42.8 BUN/Cr 12.3 Lactate 0.7 UA + leukocyte esterase, + urine nitrite, urine WBC > 100, urine bacteria > 30, CXR revealed right pulmonary radiopacities effusion suspicious for pneumonia. Received NS bolus 2040, levofloxacin 750 mg, acetaminophen 1020 mg, oxycodone 10 mg, percocet 5/325 Patient History Medical History Bowel obstruction (Acute) Creutzfeldt Evans disease (Acute) H/O: hysterectomy (Acute) Hypothyroid (Acute) Jejunostomy tube present (Acute) Ovarian cancer (Acute) Reflux esophagitis (Acute) Uterine cancer (Acute) Surgical History H/O fasciotomy (Acute) H/O left knee surgery (Acute) Family & Social History Family History: Reviewed 05/04/18 by DANILO Hurley Social History: Prior Living Arrangements Adult Family Home Safety & Behavioral: Feels Safe in Current Yes Environment Been Physically Hurt or No Threatened By a Person Suicidal Ideation Description None Suicide Plan Description No Plan Tobacco & Substance use: Smoking Status Former smoker alcohol intake never Substance Use Type does not use Meds Home Medications Medication Instructions Recorded Confirmed Type acetaminophen 1 - 2 tab FEEDING TUBE PRN PRN MDD 05/04/18 05/04/18 History 3000 mg ddepzju-zuurziwzpxmdz-rhujorry 2 tab FEEDING TUBE DAILY PRN 05/04/18 05/04/18 History [Excedrin Migraine] cetirizine 1 tab FEEDING TUBE DAILY PRN 05/04/18 05/04/18 History dextromethorphan-guaifenesin 10 ml FEEDING TUBE Q4H PRN 05/04/18 05/04/18 History [Tussin DM] diclofenac sodium 2 g TOPICAL TID PRN 05/04/18 05/04/18 History fluticasone furoate 1 spray INTRANASAL DAILY PRN 05/04/18 05/04/18 History levothyroxine 1 tab FEEDING TUBE DAILY 05/04/18 05/04/18 History loperamide 2 cap FEEDING TUBE Q4H PRN MDD 16 05/04/18 05/04/18 History MG methadone 15 mg FEEDING TUBE TID 05/04/18 05/04/18 History miconazole nitrate 1 applic VAGINAL PRN PRN 05/04/18 05/04/18 History miconazole nitrate [Shayna 1 applic TOPICAL 3-4XD 05/04/18 05/04/18 History Antifungal] ondansetron 1 tab FEEDING TUBE PRN PRN 05/04/18 05/04/18 History oxycodone 1 - 2 tab FEEDING TUBE Q3H PRN MDD 05/04/18 05/04/18 History 8 tabs polyethylene glycol 3350 [Miralax] 8.5 g FEEDING TUBE DAILY PRN 05/04/18 05/04/18 History pregabalin [Lyrica] 1 cap FEEDING TUBE TID 05/04/18 05/04/18 History sertraline 7.5 ml FEEDING TUBE QPM 05/04/18 05/04/18 History thiamine HCl (vitamin B1) 100 mg FEEDING TUBE DAILY 05/04/18 05/04/18 History trazodone 1 tab FEEDING TUBE BEDTIME 05/04/18 05/04/18 History water 100 ml PO QID 05/04/18 05/04/18 History Allergies Allergy/AdvReac Type Severity Reaction Status Date / Time clindamycin Allergy Severe Anaphylaxis Verified 05/04/18 12:34 Penicillins Allergy Severe Anaphylaxis Verified 05/04/18 12:33 Review of Systems Review of Systems All systems reviewed & are unremarkable except as noted in HPI and below Exam Vital Signs (past 8 hours): - 05/04/18 13:00 05/04/18 13:30 05/04/18 14:08 Temperature 99.9 F H Pulse Rate 92 H 90 Respiratory Rate 14 15 Blood Pressure Blood Pressure [Left Arm] 90/45 L 85/46 L Pulse Oximetry 96 97 05/04/18 14:09 05/04/18 14:15 05/04/18 14:17 Temperature 99.9 F H Pulse Rate 83 82 87 Respiratory Rate 20 15 15 Blood Pressure Blood Pressure [Left Arm] 81/42 L 82/51 L 82/51 L Pulse Oximetry 94 98 98 05/04/18 14:30 05/04/18 14:43 05/04/18 15:16 Temperature Pulse Rate 80 82 80 Respiratory Rate 16 17 Blood Pressure Blood Pressure [Left Arm] 86/54 L 86/54 L 80/49 L Pulse Oximetry 99 99 05/04/18 16:00 05/04/18 16:04 05/04/18 16:30 Temperature Pulse Rate 78 79 98 H Respiratory Rate 11 L 18 15 Blood Pressure Blood Pressure [Left Arm] 82/52 L 82/52 L 86/55 L Pulse Oximetry 100 98 100 05/04/18 17:00 05/04/18 17:05 05/04/18 19:23 Temperature 98.6 F Pulse Rate 97 H 114 H 85 Respiratory Rate 16 16 16 Blood Pressure 95/56 L Blood Pressure [Left Arm] 87/52 L 87/52 L Pulse Oximetry 95 93 100 Oxygen Delivery Method Nasal Cannula Oxygen Flow Rate 4 Narrative Exam Narrative: Constitutional: NAD Head: NC / AT Eyes: appearance normal, alignment normal, sclerae anicteric, pupils equal and reactive, EOMI, Ears: external ears normal Nose: external nose normal, no epistaxis no nasal discharge Throat: oropharynx normal, dry mucous membranes Neck: normal visual inspection, full ROM, no focal tenderness of the cervical spine, + tenderness right trapezius aspect Chest: normal inspection of the chest, no tenderness to palpation Resp: shallow respiratory effort, RUL Clear / RML - diminished / RLL - diminished, crackles; OUMAR - clear / LLL - diminished Cardio: S1S2, no murmur GI: degree of abdominal deformity, slightly firm, non-tender, non-distended, J-Tube present (slight redness around exit site, no drainage), hypoactive BS : eisenberg catheter present Skin: overall pale appearance Neuro: AOx3 Extremities: distal pulses palpable, no edema, Musc: diminished ROM of BLE (able to life off bed and hold against resistance), bilat foot drop, toes downgoing diminished muscle tone Psych: flat affect Objective Labs Result Diagrams: 05/04/18 11:40 05/04/18 11:40 Labs: Laboratory Results - last 24 hr 05/04/18 05/04/18 05/04/18 11:40 11:40 11:40 WBC 13.0 H RBC 3.73 L Hgb 9.2 L Hct 28.8 L MCV 77.2 L MCH 24.7 L MCHC 32.0 RDW 16.0 H Plt Count 290 Neut % (Auto) 88.0 H Lymph % (Auto) 6.0 L Barron % (Auto) 5.2 Eos % (Auto) 0.6 L Baso % (Auto) 0.2 Neut # (Auto) 03277 H PT 15.3 H INR 1.4 H APTT 36 Sodium Potassium Chloride Carbon Dioxide BUN Creatinine Estimated GFR BUN/Creatinine Ratio Glucose Lactate Calcium Total Bilirubin AST ALT Alkaline Phosphatase Total Protein Albumin Globulin Albumin/Globulin Ratio Lipase Procalcitonin 0.51 H Urine Color Urine Appearance Urine pH Ur Specific Adrian Urine Protein Urine Glucose (UA) Urine Ketones Urine Occult Blood Urine Nitrate Urine Bilirubin Urine Urobilinogen Ur Leukocyte Esterase Urine RBC Urine WBC Ur Squamous Epith Cells Ur Renal Epithelial Cell Amorphous Sediment Urine Bacteria Urine Mucus Ur Culture Indicated? Micro UA Comment 10/24/18 10/24/18 10/24/18 11:40 11:40 13:00 WBC RBC Hgb Hct MCV MCH MCHC RDW Plt Count Neut % (Auto) Lymph % (Auto) Barron % (Auto) Eos % (Auto) Baso % (Auto) Neut # (Auto) PT INR APTT Sodium 139 Potassium 4.6 Chloride 100 Carbon Dioxide 29 BUN 16 Creatinine 1.30 H Estimated GFR 42.8 L BUN/Creatinine Ratio 12.3 Glucose 105 H Lactate 0.7 Calcium 8.3 L Total Bilirubin 0.4 AST 12 L ALT 20 Alkaline Phosphatase 116 Total Protein 6.2 L Albumin 3.3 L Globulin 2.9 Albumin/Globulin Ratio 1.1 Lipase < 10 L Procalcitonin Urine Color Yellow Urine Appearance Cloudy Urine pH 6.5 Ur Specific Adrian <1.005 Urine Protein 1+ H Urine Glucose (UA) Normal Urine Ketones Negative Urine Occult Blood 3+ H Urine Nitrate Positive H Urine Bilirubin Negative Urine Urobilinogen 1.0 Ur Leukocyte Esterase 2+ H Urine RBC 5-10/hpf H Urine WBC >100/hpf H Ur Squamous Epith Cells 1-5 /hpf Ur Renal Epithelial Cell 1-5/hpf Amorphous Sediment 1+ Urine Bacteria Many (>30) H Urine Mucus 2+ H Ur Culture Indicated? Specimen cultured Micro UA Comment Not Reportable Assessment & Plan Plan: Assessment/Plan Narrative: Right lobe pneumonia w/ MDR risk factor (resident of an adult [place] [facility] care facility) - blood cultures collected in the ED, results pending - empiric therapy with levofloxacin - supplemental oxygen, titrate for SpO2 > 92% - IS Q1H WA - DuoNeb treatments q Q6H prn - Repeat CXR 05/06/18 - Labs now: sputum culture, procalcitonin - Labs am: CBC, BMP - supportive care: antiemetics, analgesics prn - DVT prophylaxis: SCDs, SQ heparin Urinary tract infection Known h/o of recurrent UTIs. Eisenberg catheter, chronic - replace eisenberg catheter - levofloxacin Sepsis Fever, tachycardia, hypoxia, and leukocytosis; SBP 80s, pt asymptomatic Chest x-ray suspicious for pneumonia. UA consistent with UTI. - blood culture and urine culture collected in ED, results pending - received 750 mg of levofloxacin in the ED - receive 30 ml/kg IV of bolus, maintenance IVF - supportive care CKD III, baseline renal fx is not known, sCr 1.3 - Trend renal fx w/ routine labs - Avoid nephrotoxic agents and optimize renal perfusion Anemia, Hgb 9.2, no active s/s of blood loss Chronic pain syndrome H/O fibromyalgia and neuropathy On methadone and oxycodone - Will give patient 1 time dose of methadone - Percocet available Migraine headache Patient requests her headache be treated with opioid. Opioid use for treatment of headache is discouraged, as opioids 10 to worsen headache. - give Toradol 15 mg x1 and compazine 5 mg x1 (both IV) Hypothyroidism - resume PTO dose of levothyroxine Creutzfeldt evans disease w/ functional debility - PT eval and treat re: chronic illness w/ high risk for debility in the setting of acute illness Quality VTE Deep Vein Thrombosis/Pulmonary Embolism Present on Admission: No
[2018-05-04] MEDS: METHADONE 10 MG TABLET PO (22:17)
[2018-05-04] MEDS: PROCHLORPERAZINE 10 MG/2 ML VIAL 5 MG IV (22:53)
[2018-05-04] MEDS: KETOROLAC 30 MG/ML VIAL 15 MG IV (22:57)
[2018-05-05] VITALS (14 sets, daily range): BP systolic 101–127; BP diastolic 49–74; PULSE 83–110; RESP 15–91; TEMP 36.5–37.2; O2SAT 18–97
--- NOTE | 2018-05-05 00:10 | PC.NURSE ---
evening shift note- home [id number] li8st provided to hospitalist on duty. hospitalist told this RN that she would not right for chronic narcotics that people take at home. I will only given a one time order and you will have to call each time for more.
[2018-05-05] MEDS: OXYCODONE/ACETAMINOPHEN 5/325 TABLET 1 TAB PO (01:08)
--- NOTE | 2018-05-05 02:40 | PC.NURSE ---
Addendum entered by Hannah Johnson R.N. 05/05/18 05:13: Incentive spirometer given and instructed patient on use and she understood and performed correctly. Now on 2L NC at 96%. Unable to bring up a sputum culture thus far. Patient started on NS@75mL/hr for low SBP in the 90s. Afebrile Original Note: Pt is AxOx3. Vital signs stable. Temp 99.4F and diaphoretic, BP 95/56. Blankets removed. Ice placed on neck for pain. 1 Percocet given. Was on 6L NC at start of shift. I immediately bumped her down to 3L NC and she is satting at 95%. Will continue to try to titrate down. Patient has a coarse cough. She reports being able to sometimes cough it up. Stoma on neck is clean, dry, no redness, able to cough out through it as well. J-Tube is clean, dry, and intact. Under umbilicus. Meds administered through it. Flushed and patent. Gauze around site. Pt has a chronic eisenberg that i replaced on 05/05 at 0100 with a 16Fr. Old eisenberg had a foul odor. Patent, yellow urine draining. There are two small beltran on patients left leg from the old stat lock from home she had on that look macerated. It was cleaned, is blanchable. New STAT lock placed on opposite leg. Had moderate sized soft brown BM. Incontinent. Patients b/l toes curled, states it prevents her from walking and that she is bedridden. Able to turn herself in bed.
[2018-05-05] MEDS: SODIUM CHLORIDE 0.9% 1,000 ML 75 ML IV (04:02)
[2018-05-05 05:39] LABS: Add Manual Diff / Slide Review NO; Basophils Percent Auto 0.2 % (0-2); Hematocrit 25.8 % (36-46); Hemoglobin 8.2 g/dL (12.0-16.0); Lymphocytes Percent Auto 6.6 % (25-40); Mean Corpuscular HGB Conc 31.9 % (30-36); Mean Corpuscular Hemoglobin 24.8 PG (26-34); Mean Corpuscular Volume 77.9 fL (80-100); Monocytes Percent Auto 5.1 % (3-14); Neutrophils Absolute Auto 10000 /uL (3000-5900); Neutrophils Percent Auto 87.1 % (50-75); Platelet Count 250 X10^3/uL (150-400); Red Blood Cell Count 3.32 X10^6/uL (4.0-5.2); White Blood Cell Count 11.5 X10^3/uL (4.5-11.0)
[2018-05-05 05:43] LABS: BUN Creatinine Ratio 12.7 (6-22); Blood Urea Nitrogen 14 mg/dL (7-17); Calcium 8.3 mg/dL (8.4-10.2); Carbon Dioxide 28 mmol/L (22-32); Chloride 110 mmol/L (98-107); Glucose 100 mg/dL (70-100); HEMOLYSIS < 15 (0-50); Potassium 4.2 mmol/L (3.4-5.1); Sodium 146 mmol/L (137-145)
[2018-05-05 05:59] LABS: Procalcitonin 0.46 ng/mL (<0.5)
--- NOTE | 2018-05-05 09:00 | CM.DANOTE ---
Addendum entered by Kathy Hopkins LPN 05/05/18 12:20: Spoke now with PT Sheyla after she saw pt. She reports that pt is full care in terms of mobility at the [facility]. She gets up via a gianluca/mechanical lift and uses a power w/c. She is able to do her own exercises in bed. Sheyla will d/c the PT eval and write an administrative/therapy note re same. P: Dr. 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 Original Note: Discharge Planning/Care Management DCP: assessment: case received, EMR reviewed and met with pt. Introduced self and role. Pt is a 53 year old female who is disabled. Admitted to care of the hospitalist team yesterday late afternoon. PCP: Danielle Senior/at a [facility]. Payer: [facility] and Medicaid. Discussion with DANA Morris reveals that pt does have a J tube in place. She is also on a by mouth diet. Carries dx, per H&P, of Creutzfeldt Evans disease and chronic pain syndrome/fibromyalgia. Is on routine methadone and oxycodone. Pt says the adult family home called her with concerns and he gave the ok to send her to the hospital. Pt is a bit vague in her information. P: identify the [facility] and contact information. Discuss case in Team Rounds. Dr. Hall will be seeing pt today. DEVIN has spoken to [place] on [facility] and received confirmation that she is a resident there. See her documentation for contact info specifics. CM Discharge Assessment Start: 05/05/18 08:55 Freq: Status: Active Protocol: Document 05/05/18 08:56 ITV (Rec: 05/05/18 09:00 ITV [id number]) Discharge Planning Assessment History Provided By Patient Medical Record Prior Living Arrangements Adult Family Home Comment no info received from the [facility]. Pt identifies this as the [facility]: DEVYNAislinn is assisting in finding the specific facility. Comment pt's spouse Carlos lives in [place]. His address is her mailing address/listed on face sheet as her address Type of transporation used prior to Relies on Others admit Willing to Return to Facility? Yes Is patient alert and oriented? alert but groggy. orientation unclear at this time. Whiteboard Updated in Patient Room with Yes name and ext. # of Lorry Weigher Review Status In Process Next Review Type Continued Stay Review Discharge Planning/Care Management CM Discharge Assessment Start: 05/05/18 08:55 Freq: Status: Active Protocol: Document 05/05/18 08:56 ITV (Rec: 05/05/18 09:00 ITV [email or web address]) Discharge Planning Assessment History Provided By Patient Medical Record Prior Living Arrangements Adult Family Home Comment no info received from the [facility]. Pt identifies this as the [facility]: [facility] is assisting in finding the specific facility. Comment pt's spouse Carlos lives in [place]. His address is her mailing address/listed on face sheet as her address Type of transporation used prior to Relies on Others admit Willing to Return to Facility? Yes Is patient alert and oriented? alert but groggy. orientation unclear at this time. Whiteboard Updated in Patient Room with Yes name and ext. # of Lorry Weigher Review Status In Process Next Review Type Continued Stay Review
--- NOTE | 2018-05-05 09:10 | CM.DPC ---
Spoke with Danielle Giffordjatin on [place] [phone]. Patient is a resident there.
[2018-05-05] MEDS: PREGABALIN 75 MG CAPSULE PO ×2 (10:22→21:07)
[2018-05-05] MEDS: LEVOTHYROXINE 100 MCG TABLET PO (10:22)
[2018-05-05] MEDS: HEPARIN 5,000 UNIT/ML VIAL 5000 UNIT SUBCUT ×2 (10:25→21:07)
[2018-05-05] MEDS: OXYCODONE IR 5 MG TABLET PO ×2 (10:30→21:11)
[2018-05-05] MEDS: METHADONE INTENSOL 10 MG/ML ORAL.CONC 15 MG PO ×3 (12:05→21:06)
--- NOTE | 2018-05-05 12:26 | PT.IPTN ---
Physical Therapy Treatment Note M3 PT-IP Subjective Start: 05/05/18 12:21 Freq: NEEDED Status: Active Protocol: Document 05/05/18 12:21 AB (Rec: 05/05/18 12:26 AB [id number]) Subjective Physical Therapy Visit Type Type Administrative Note Notes checked on pt for PT eval. pt refusing PT and also stated that she lives in an adult family home and transfers using the gianluca lift and uses a power w/c for mobility. pt refuse to get out of bed. pt able to do LE exercises and understood that she has to do them for muscle strength. pt stated that she has not walk and has been transferring with a gianluca lift for years. Nurse and upper caser aware of pt's PLOF and that at this time, no PT intervention is indicated. PT eval order will be discharged.
[2018-05-05] MEDS: levoFLOXacin 750 MG/150 ML PIGGYBACK 100 MG IV (14:34)
--- NOTE | 2018-05-05 15:34 | P.PN_ITS ---
Subjective Date Patient Seen: 05/05/18 Interval history: Patient reports being diaphoretic, ill feeling with productive sputum coming from her trach site. She was able to get off her oxygen. Exam Vital Signs (past 8 hours): - 05/05/18 08:25 05/05/18 08:40 05/05/18 08:54 Temperature 97.7 F Pulse Rate 83 Respiratory Rate 15 Blood Pressure 109/71 Pulse Oximetry 97 97 94 05/05/18 11:00 05/05/18 14:05 Temperature Pulse Rate 108 H Respiratory Rate 18 Blood Pressure Pulse Oximetry 92 93 Fraction of Inspired Oxygen 21 Oxygen Delivery Method Room Air Oxygen Flow Rate 0 Narrative Exam Narrative: Ill appearing female in no acute distress Lungs: decreased breath sounds at right base CV RRR nlSl S2 Abd: soft/ nontender/ non distended Ext: flaccid, no edema, some muscle wasting Objective Labs Result Diagrams: 05/05/18 05:21 05/05/18 05:21 Labs: Laboratory Results - last 24 hr 05/05/18 05/05/18 05/05/18 05:21 05:21 05:21 WBC 11.5 H RBC 3.32 L Hgb 8.2 L Hct 25.8 L MCV 77.9 L MCH 24.8 L MCHC 31.9 RDW 16.0 H Plt Count 250 Neut % (Auto) 87.1 H Lymph % (Auto) 6.6 L Mariposa % (Auto) 5.1 Eos % (Auto) 1.0 L Baso % (Auto) 0.2 Neut # (Auto) 99312 H Sodium 146 H Potassium 4.2 Chloride 110 H Carbon Dioxide 28 BUN 14 Creatinine 1.10 H Estimated GFR 52.0 L BUN/Creatinine Ratio 12.7 Glucose 100 Calcium 8.3 L Procalcitonin 0.46 Assessment & Plan (1) Acute hypernatremia: Problem details: Continue free water in fluids Current visit: Yes Status: Acute (2) Anemia: Problem details: will follow closely, consider transfusion for hemoglobin less than 7 Current visit: Yes Status: Acute (3) Sepsis: Problem details: improved since admission Qualifiers: Sepsis type: Current visit: Yes Status: Acute (4) Pneumonia: Problem details: continue current antibiotics Qualifiers: Aspiration pneumonia type: Laterality: Lung location: Pneumonia type: Current visit: Yes Status: Acute Quality VTE Deep Vein Thrombosis/Pulmonary Embolism Present on Admission: No
[2018-05-05] MEDS: SERTRALINE 50 MG TABLET 100 MG PO (21:08)
[2018-05-05] MEDS: ACETAMINOPHEN SUSP 650 MG/20.3 ML UDC PO (21:13)
[2018-05-05] MEDS: PROCHLORPERAZINE 10 MG/2 ML VIAL 5 MG IV (21:52)
[2018-05-06] VITALS (12 sets, daily range): BP systolic 107–123; BP diastolic 70–79; PULSE 98–111; RESP 15–18; TEMP 36.6–37.2; O2SAT 90–95
--- NOTE | 2018-05-06 02:01 | PC.NURSE ---
RA SPO2 87-89 % when assessed @ 0110. Placed 1 liter of SPO2 94%. Refused to wear SCD's & to turned to her side. Will cont. POC & monitor.
--- NOTE | 2018-05-06 06:00 | DI.RAD.S_ITS ---
PROCEDURE: XR CHEST 1V INDICATIONS: PNA, dyspnea, hypoxia TECHNIQUE: One view of the chest was acquired. COMPARISON: [facility], CR, XR CHEST 1V, 05/04/2018, 11:59. FINDINGS: Surgical changes and devices: None. Lungs and pleura: No pleural effusions or pneumothorax. Interval increase in airspace opacity involving the right upper lobe as well as airspace opacities within the mid right lung and right lung base with complete silhouetting of the right hemidiaphragm. Small right pleural effusion is suspected. Left lung is clear. No pneumothorax. Mediastinum: Mediastinal contours appear normal. Heart size is normal. Bones and chest wall: No suspicious bony lesions. Overlying soft tissues appear unremarkable. IMPRESSION: Worsening right lung pneumonia and probable trace right pleural effusion. Continued radiographic surveillance to resolution is recommended. Dictated by: Damir HEWITT Interpreted: Court Barrios MD on 05/06/2018 at 9:38 Approved by: Court Barrios M.D. on 05/06/2018 at 10:24
[2018-05-06] MEDS: LEVOTHYROXINE 100 MCG TABLET PO (06:29)
[2018-05-06] MEDS: SODIUM CHLORIDE 0.9% 1,000 ML 75 ML IV (08:19)
[2018-05-06] MEDS: HEPARIN 5,000 UNIT/ML VIAL 5000 UNIT SUBCUT ×2 (09:53→20:31)
[2018-05-06] MEDS: OXYCODONE IR 5 MG TABLET PO ×3 (10:05→20:31)
[2018-05-06] MEDS: METHADONE INTENSOL 10 MG/ML ORAL.CONC 15 MG PO ×3 (10:10→20:31)
[2018-05-06] MEDS: THIAMINE 100 MG TABLET PO (10:10)
[2018-05-06] MEDS: PREGABALIN 75 MG CAPSULE PO ×2 (10:10→20:31)
[2018-05-06] MEDS: levoFLOXacin 750 MG/150 ML PIGGYBACK 100 MG IV (13:45)
--- NOTE | 2018-05-06 15:10 | PM.PN.1 ---
Subjective Date Patient Seen: 05/06/18 Time Patient Seen: 15:11 Interval history: She is seen today to follow-up for community-acquired pneumonia, with a baseline of Creutzfeldt-Evans disease. She tells me that she lives in an adult family home on [facility] and uses the PEG tube only for medicines. She is eating during my visit. Her primary care physician is in [place]. The urine culture is growing E coli. This is a directly related to the indwelling Licea catheter Exam Vital Signs (past 8 hours): - 05/06/18 08:30 05/06/18 09:00 05/06/18 13:00 Temperature 98.2 F Pulse Rate 109 H Respiratory Rate 18 Blood Pressure 111/71 Pulse Oximetry 94 95 94 Fraction of Inspired Oxygen 21 Oxygen Delivery Method Nasal Cannula Oxygen Flow Rate 0.5 Narrative Exam Narrative: She looks quite weak and debilitated. She is oriented x3. There is a PEG tube present on the abdomen which is nontender. Her heart is tachycardic and regular rhythm without murmur. Lungs have diminished breath sounds at both bases. Extremities have no ankle edema. Objective Labs Result Diagrams: 05/05/18 05:21 05/05/18 05:21 Assessment & Plan (1) Anemia: Problem details: will follow closely, consider transfusion for hemoglobin less than 7 Current visit: Yes Status: Acute (2) Acute hypernatremia: Problem details: Continue free water in fluids Current visit: Yes Status: Acute (3) Sepsis: Problem details: improved since admission Qualifiers: Sepsis type: Current visit: Yes Status: Acute (4) Pneumonia: Problem details: continue current antibiotic coverage with levofloxacin. Qualifiers: Aspiration pneumonia type: Laterality: Lung location: Pneumonia type: Current visit: Yes Status: Acute (5) Creutzfeldt Evans disease: Problem details: She is quite disabled/debilitated and dependent on care at baseline. Current visit: Yes Status: Acute (6) E. coli UTI: Problem details: Begin IV Rocephin. Current visit: Yes Status: Acute Quality VTE Deep Vein Thrombosis/Pulmonary Embolism Present on Admission: No
[2018-05-06] MEDS: CEFTRIAXONE 1 GM/50 ML FROZ.PIGGY IV (15:53)
[2018-05-06] MEDS: SERTRALINE 50 MG TABLET 100 MG PO (20:31)
[2018-05-07] VITALS (14 sets, daily range): BP systolic 102–124; BP diastolic 62–85; PULSE 95–129; RESP 16–18; TEMP 36.7–37.1; O2SAT 87–97
[2018-05-07] MEDS: SODIUM CHLORIDE 0.9% 1,000 ML 75 ML IV ×2 (00:21→15:09)
[2018-05-07 06:07] LABS: Hematocrit 28.1 % (36-46); Mean Corpuscular HGB Conc 31.8 % (30-36); Mean Corpuscular Hemoglobin 24.5 PG (26-34); Platelet Count 363 X10^3/uL (150-400); Red Blood Cell Count 3.65 X10^6/uL (4.0-5.2); Red Cell Distribution Width 16.4 % (11.6-14.8); White Blood Cell Count 8.8 X10^3/uL (4.5-11.0)
[2018-05-07 06:08] LABS: Add Manual Diff / Slide Review YES
[2018-05-07 06:13] LABS: Blood Urea Nitrogen 15 mg/dL (7-17); Calcium 8.6 mg/dL (8.4-10.2); Carbon Dioxide 24 mmol/L (22-32); Chloride 112 mmol/L (98-107); Glucose 88 mg/dL (70-100); HEMOLYSIS < 15 (0-50); Potassium 3.9 mmol/L (3.4-5.1); Sodium 145 mmol/L (137-145)
[2018-05-07] MEDS: LEVOTHYROXINE 100 MCG TABLET PO (06:43)
[2018-05-07 07:11] LABS: Neutrophils Absolute Manual 7480 /uL (3000-5900); Total Cells Counted 100
[2018-05-07 07:12] LABS: Hypochromasia 1+
[2018-05-07] MEDS: HEPARIN 5,000 UNIT/ML VIAL 5000 UNIT SUBCUT ×2 (08:27→20:21)
[2018-05-07] MEDS: THIAMINE 100 MG TABLET PO (08:27)
[2018-05-07] MEDS: METHADONE INTENSOL 10 MG/ML ORAL.CONC 15 MG PO ×3 (08:27→20:30)
[2018-05-07] MEDS: PREGABALIN 75 MG CAPSULE PO ×2 (08:27→20:21)
--- NOTE | 2018-05-07 09:15 | PM.PN.1 ---
Subjective Interval history: No new complaints or issues in the prior 24 hr Exam Vital Signs (past 8 hours): - 05/07/18 04:00 05/07/18 05:31 05/07/18 07:54 Temperature 98.8 F 98.7 F Pulse Rate 129 H 103 H Respiratory Rate 18 16 Blood Pressure 117/76 113/77 Pulse Oximetry 94 93 93 Fraction of Inspired Oxygen 21 Oxygen Delivery Method Nasal Cannula Oxygen Flow Rate 0.5 Narrative Exam Narrative: General NAD HEENT normocephalic atraumatic extraocular movement was intact pupils are equal round reactive for and I was not viewed oropharynx was clear Neck is supple without thyromegaly bruits or jugular venous distention Respiratory diminished breath sounds right lower lobe Cardiovascular regular rhythm S1-S2 was normal there are no lifts heaves rubs murmurs gallops present Abdomen rotund benign bowel sounds present Genitourinary Eisenbreg catheter present Diminished muscle tone Neurologic decreased range of motion bilateral lower extremities, both bilateral footdrop, Psychiatric alert oriented x3 and flat affect Objective Labs Result Diagrams: 05/07/18 05:40 05/07/18 05:40 Labs: Laboratory Results - last 24 hr 05/07/18 05/07/18 05:40 05:40 WBC 8.8 RBC 3.65 L Hgb 9.0 L Hct 28.1 L MCV 77.0 L MCH 24.5 L MCHC 31.8 RDW 16.4 H Plt Count 363 Neut % (Auto) Not Reportable Lymph % (Auto) Not Reportable [place] % (Auto) Not Reportable Eos % (Auto) Not Reportable Baso % (Auto) Not Reportable Total Counted 100 Seg Neutrophils % 62.0 Band Neutrophils % 23.0 H Lymphocytes % (Manual) 10.0 L Eosinophils % (Manual) 5.0 H Neutrophils # (Manual) 7480 H RBC Morphology Not Reportable Hypochromasia 1+ H Sodium 145 Potassium 3.9 Chloride 112 H Carbon Dioxide 24 BUN 15 Creatinine 1.00 Estimated GFR 58.0 L BUN/Creatinine Ratio 15.0 Glucose 88 Calcium 8.6 Assessment & Plan Plan: Assessment/Plan Narrative: 1. Acute hypoxic respiratory failure This is improved with treatment for her pneumonia 2. Right lobe pneumonia Bacterial cannot r pneumonia; ule out Gram-positive for gram-negative - she is on Rocephin - supplemental oxygen, titrate for SpO2 > 92% - IS Q1H PRIYANKA OwenoNeb treatments q Q6H prn - Repeat CXR 05/06/18 revealed worsening right lower lobe pneumonia and probable trace right pleural effusion. Suspect IV fluids is contributed to this finding - Labs now: sputum culture has not been collected blood cultures no growth today - Labs am: CBC, BMP 3. Urinary tract infection secondary to Escherichia coli - Known h/o of recurrent UTIs. Eisenberg catheter, chronic - eisenberg catheter replaced -possible colonization however cannot rule out primary urinary tract infection secondary to Eisenberg catheter - levofloxacin discontinued as organism is resistant to this and patient placed on Rocephin IV yesterday -she remains afebrile 4. Sepsis, resolved - no longer with hypotension Fever; WBC has normalized tachycardia has improved - blood culture are no growth and urine culture as above - she did receive receive 30 ml/kg IV of bolus, maintenance IVF 5. Acute renal failure, resolved -sCr 1.3 on admission -Today normalized and is 1.00 - Avoid nephrotoxic agents and optimize renal perfusion 6. Anemia, stable 7. Chronic pain syndrome/opioid dependence -H/O fibromyalgia and neuropathy -On methadone and oxycodone 8. Migraine headache -Compazine IV as needed, oxycodone p.o. as needed 9. Hypothyroidism - levothyroxine levothyroxine 100 mcg p.o. daily 10. Creutzfeldt chandana disease w/ functional debility - PT eval and treat re: chronic illness w/ high risk for debility in the setting of acute illness Quality VTE Deep Vein Thrombosis/Pulmonary Embolism Present on Admission: No
[2018-05-07] MEDS: levoFLOXacin 750 MG/150 ML PIGGYBACK 100 MG IV (12:39)
[2018-05-07] MEDS: CEFTRIAXONE 1 GM/50 ML FROZ.PIGGY IV (16:13)
[2018-05-07] MEDS: SERTRALINE 50 MG TABLET 100 MG PO (20:21)
[2018-05-07] MEDS: SODIUM CHLORIDE 0.9% FLUSH 10 ML IV (20:22)
[2018-05-08] VITALS (16 sets, daily range): BP systolic 112–130; BP diastolic 74–79; PULSE 90–107; RESP 13–18; TEMP 36.6–37.2; O2SAT 87–96
[2018-05-08] MEDS: OXYCODONE IR 5 MG TABLET PO ×4 (03:00→19:24)
[2018-05-08] MEDS: SODIUM CHLORIDE 0.9% 1,000 ML 75 ML IV ×2 (05:46→19:24)
[2018-05-08 05:50] LABS: Hematocrit 28.8 % (36-46); Hemoglobin 9.1 g/dL (12.0-16.0); Mean Corpuscular HGB Conc 31.7 % (30-36); Mean Corpuscular Hemoglobin 24.4 PG (26-34); Platelet Count 361 X10^3/uL (150-400); Red Blood Cell Count 3.74 X10^6/uL (4.0-5.2); Red Cell Distribution Width 16.6 % (11.6-14.8); White Blood Cell Count 10.4 X10^3/uL (4.5-11.0)
[2018-05-08 05:51] LABS: Add Manual Diff / Slide Review YES
[2018-05-08 05:53] LABS: Alanine Aminotransferase 17 IU/L (9-52); Albumin 2.7 g/dL (3.5-5.0); Alkaline Phosphatase 89 U/L (38-126); Aspartate Aminotransferase 17 IU/L (14-36); Bilirubin Total 0.2 mg/dL (0.2-1.3); Blood Urea Nitrogen 14 mg/dL (7-17); Calcium 8.3 mg/dL (8.4-10.2); Carbon Dioxide 24 mmol/L (22-32); Chloride 110 mmol/L (98-107); Globulin 2.8 g/dL (1.7-4.1); Glucose 88 mg/dL (70-100); HEMOLYSIS < 15 (0-50); Potassium 3.7 mmol/L (3.4-5.1); Sodium 145 mmol/L (137-145); Total Protein 5.5 g/dL (6.3-8.2)
[2018-05-08 06:27] LABS: Total Cells Counted 100
[2018-05-08 06:28] LABS: Anisocytosis 2+; Hypochromasia 1+; Neutrophils Absolute Manual 9360 /uL (3000-5900)
[2018-05-08] MEDS: LEVOTHYROXINE 100 MCG TABLET PO (06:40)
[2018-05-08] MEDS: HEPARIN 5,000 UNIT/ML VIAL 5000 UNIT SUBCUT ×2 (09:51→20:32)
[2018-05-08] MEDS: PREGABALIN 75 MG CAPSULE PO ×2 (09:52→20:32)
[2018-05-08] MEDS: THIAMINE 100 MG TABLET PO (09:53)
[2018-05-08] MEDS: SODIUM CHLORIDE 0.9% FLUSH 10 ML IV (09:53)
[2018-05-08] MEDS: METHADONE 5 MG TABLET 15 MG PO ×3 (09:56→20:34)
--- NOTE | 2018-05-08 10:58 | P.PN_ITS ---
Subjective Date Patient Seen: 05/08/18 Time Patient Seen: 10:54 Interval history: She is seen in her room today to follow up her hypoxic respiratory failure, pneumonia, E coli urinary tract infection, sepsis, CKJ disease and hypothyroidism. The hemoglobin is stable at 9.1. The potassium is improved at 3.7. The GFR is 58. She has been refusing any attempts at rehabilitation, her baseline of Aminata use for transfers is continued. Exam Vital Signs (past 8 hours): - 05/08/18 04:00 05/08/18 04:45 05/08/18 08:05 Temperature 98.9 F 98.6 F Pulse Rate 96 H 104 H Respiratory Rate 18 18 Blood Pressure 112/74 121/77 Pulse Oximetry 93 93 93 05/08/18 08:22 05/08/18 09:00 05/08/18 09:15 Temperature Pulse Rate Respiratory Rate Blood Pressure Pulse Oximetry 91 93 87 L Fraction of Inspired Oxygen 21 Oxygen Delivery Method Room Air Oxygen Flow Rate 1.5 Narrative Exam Narrative: Alert and oriented x3. She reminds me that she has ?a hole in her head? 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 Heart is regular rate and rhythm without murmur, lungs are clear to auscultation bilaterally, extremities no ankle edema. Objective Labs Result Diagrams: 05/08/18 05:07 05/08/18 05:07 Labs: Laboratory Results - last 24 hr 05/08/18 05/08/18 05:07 05:07 WBC 10.4 RBC 3.74 L Hgb 9.1 L Hct 28.8 L MCV 77.0 L MCH 24.4 L MCHC 31.7 RDW 16.6 H Plt Count 361 Neut % (Auto) Not Reportable Lymph % (Auto) Not Reportable [place] % (Auto) Not Reportable Eos % (Auto) Not Reportable Baso % (Auto) Not Reportable Total Counted 100 Seg Neutrophils % 83.0 H Band Neutrophils % 7.0 Lymphocytes % (Manual) 7.0 L Monocytes % (Manual) 1.0 L Eosinophils % (Manual) 2.0 Neutrophils # (Manual) 9360 H RBC Morphology See below Hypochromasia 1+ H Anisocytosis 2+ H Sodium 145 Potassium 3.7 Chloride 110 H Carbon Dioxide 24 BUN 14 Creatinine 1.00 Estimated GFR 58.0 L BUN/Creatinine Ratio 14.0 Glucose 88 Calcium 8.3 L Total Bilirubin 0.2 AST 17 ALT 17 Alkaline Phosphatase 89 Total Protein 5.5 L Albumin 2.7 L Globulin 2.8 Albumin/Globulin Ratio 1.0 Assessment & Plan Plan: Assessment/Plan Narrative: 1. Acute hypoxic respiratory failure This hAs improved with treatment for her pneumonia 2. Right lobe pneumonia - she is on Rocephin - supplemental oxygen, titrate for SpO2 > 92% - IS Q1H WA - DuoNeb treatments q Q6H prn - Repeat CXR 05/06/18 revealed worsening right lower lobe pneumonia and probable trace right pleural effusion. Suspect IV fluids is contributed to this finding - Labs now: sputum culture has not been collected blood cultures no growth today - WBC is 10.4 3. Urinary tract infection secondary to Escherichia coli - Known h/o of recurrent UTIs. Eisenberg catheter, chronic - eisenberg catheter replaced earlier -possible colonization however cannot rule out primary urinary tract infection secondary to Eisenberg catheter - levofloxacin discontinued as organism is resistant to this and now on Rocephin -she remains afebrile 4. Sepsis, resolved - no longer with hypotension Fever; WBC has normalized tachycardia has improved - blood culture are no growth and urine culture as above - she did receive receive 30 ml/kg IV of bolus, maintenance IVF 5. Acute renal failure, resolved -sCr 1.3 on admission -Latest is 1.00 - Avoid nephrotoxic agents and optimize renal perfusion 6. Anemia, stable at 9.1. 7. Chronic pain syndrome/opioid dependence -H/O fibromyalgia and neuropathy -On methadone and oxycodone 8. Migraine headache -Compazine IV as needed, oxycodone p.o. as needed 9. Hypothyroidism - levothyroxine levothyroxine 100 mcg p.o. daily 10. Creutzfeldt chandana disease w/ functional debility - PT eval and treat re: chronic illness w/ high risk for debility in the setting of acute illness 11. Disposition - Plan return to [facility] tomorrow if remains stable. William Glass MD Quality VTE Deep Vein Thrombosis/Pulmonary Embolism Present on Admission: No
--- NOTE | 2018-05-08 11:04 | CM.DPC ---
DCP Cont: Discussed case today with hospitalist, Dr. Glass, at rounds. Stated that she is improving, and may be able to go home tomorrow. Went ahead and called [facility], phone number: [phone]. Asked about her baseline there, and he explained that she is a full hoier there, and they have been able to meet her needs. Also confirmed that they do not provide transportation. P: Patient could be discharged tomorrow. Will need to arrange transportation for patient. Alexus Narvaez RN/Hand Striper
[2018-05-08] MEDS: CEFTRIAXONE 1 GM/50 ML FROZ.PIGGY IV (15:37)
[2018-05-08] MEDS: SERTRALINE 50 MG TABLET 100 MG PO (20:32)
--- NOTE | 2018-05-08 22:00 | PC.NURSE ---
Assumed care of pt from outgoing shift at 1500. Pt asleep at this time. uses call light. fluids infusing. tubing changed. given pain meds per MAR. Pt shifts positions with assistance. Pt bed alarm on. side rails upx3 per request. Pt ate dinner. meds crushed and dissolved in water through peg tube. Pt tolerates. will continue to monitor.
[2018-05-09] VITALS (14 sets, daily range): BP systolic 108–127; BP diastolic 71–80; PULSE 83–112; RESP 16–18; TEMP 36.8–37.4; O2SAT 88–95
[2018-05-09] MEDS: OXYCODONE IR 5 MG TABLET PO ×3 (03:04→21:19)
[2018-05-09] MEDS: LEVOTHYROXINE 100 MCG TABLET PO (06:42)
--- NOTE | 2018-05-09 07:33 | PM.PN.1 ---
Subjective Date Patient Seen: 05/09/18 Time Patient Seen: 07:38 Interval history: Patient notes bringing up yellow phlegm from her tracheostomy opening. Denies dyspnea or chest pain. Exam Vital Signs (past 8 hours): - 05/09/18 00:20 05/09/18 02:00 05/09/18 04:40 Temperature 99.0 F 99.3 F Pulse Rate 112 H 111 H Respiratory Rate 17 17 Blood Pressure 120/80 127/78 Pulse Oximetry 90 L 92 88 L 05/09/18 06:00 Temperature Pulse Rate Respiratory Rate Blood Pressure Pulse Oximetry 92 Fraction of Inspired Oxygen 21 Oxygen Delivery Method Nasal Cannula Oxygen Flow Rate 2 Narrative Exam Narrative: GENERAL: Alert pleasant elderly female in no acute distress HEENT: Pupils equal CHEST: There is diminished breath sounds in the lower lobes bilaterally CARDIAC: Tachycardic with regular rhythm ABDOMEN: Nondistended, soft, nontender EXTREMITIES: no edema. NEUROLOGICAL: Nonfocal SKIN: Warm, dry, no petechiae, no rash Objective Labs Result Diagrams: 05/08/18 05:07 05/08/18 05:07 Assessment & Plan Plan: Assessment/Plan Narrative: Assessment/Plan Narrative: 1. Acute hypoxic respiratory failure Improved but remains on 2 L O2 nasal cannula 2. Right lobe bacterial pneumonia with right parapneumonic effusion - afebrile, still mildly tachycardic and hypoxic, last WBC 10.4, elevated procalcitonin on admission, recheck procalcitonin to address adequacy of current antibiotic treatment, check EKG rule out AFib causing tachycardia - she is on Rocephin - supplemental oxygen, titrate for SpO2 > 92% - IS Q1H WA - DuoNeb treatments q Q6H prn - Repeat CXR 05/06/18 revealed worsening right lower lobe pneumonia and probable trace right pleural effusion. Suspect IV fluids is contributed to this finding 3. Urinary tract infection secondary to Escherichia coli and Pseudomonas aeruginosa - Known h/o of recurrent UTIs. Eisenberg catheter, chronic - eisenberg catheter replaced earlier -possible colonization however cannot rule out primary urinary tract infection secondary to Eisenberg catheter - E coli being addressed with Rocephin. We have not treated the Pseudomonas aeruginosa which is more likely colonization. 4. Sepsis, resolved - no longer with hypotension Fever; WBC has normalized tachycardia still present - blood culture are no growth and urine culture as above - she did receive receive 30 ml/kg IV of bolus -discontinued maintenance IV fluid 05/09/2018 5. Acute renal failure, resolved -sCr 1.3 on admission -Latest is 1.00 - Avoid nephrotoxic agents and optimize renal perfusion 6. Anemia, stable at 9.1. 7. Chronic pain syndrome/opioid dependence -H/O fibromyalgia and neuropathy -On methadone and oxycodone 8. Migraine headache -Compazine IV as needed, oxycodone p.o. as needed 9. Hypothyroidism - levothyroxine levothyroxine 100 mcg p.o. daily 10. Creutzfeldt chandana disease w/ functional debility - PT eval and treat re: chronic illness w/ high risk for debility in the setting of acute illness, at baseline she is mobilized with Aminata lift 11. Disposition - not ready for discharge due to persistent tachycardia, hypoxia Quality VTE Deep Vein Thrombosis/Pulmonary Embolism Present on Admission: No
[2018-05-09] MEDS: PREGABALIN 75 MG CAPSULE PO ×2 (08:05→21:21)
[2018-05-09] MEDS: METHADONE 5 MG TABLET 15 MG PO ×3 (08:05→21:33)
[2018-05-09] MEDS: HEPARIN 5,000 UNIT/ML VIAL 5000 UNIT SUBCUT ×2 (08:05→21:22)
[2018-05-09] MEDS: THIAMINE 100 MG TABLET PO (08:06)
[2018-05-09] MEDS: SODIUM CHLORIDE 0.9% FLUSH 10 ML IV ×2 (08:07→17:30)
[2018-05-09 09:17] LABS: Hematocrit 30.3 % (36-46); Hemoglobin 9.6 g/dL (12.0-16.0); Mean Corpuscular HGB Conc 31.8 % (30-36); Mean Corpuscular Hemoglobin 24.3 PG (26-34); Mean Corpuscular Volume 76.2 fL (80-100); Platelet Count 418 X10^3/uL (150-400); Red Blood Cell Count 3.97 X10^6/uL (4.0-5.2); Red Cell Distribution Width 16.5 % (11.6-14.8); White Blood Cell Count 12.5 X10^3/uL (4.5-11.0)
[2018-05-09 09:18] LABS: Add Manual Diff / Slide Review YES
[2018-05-09 09:35] LABS: Procalcitonin 0.06 ng/mL (<0.5)
[2018-05-09 10:04] LABS: Neutrophils Absolute Manual 10000 /uL (3000-5900); Total Cells Counted 100
[2018-05-09 10:05] LABS: Hypochromasia 1+; Microcytosis 1+
--- NOTE | 2018-05-09 10:59 | CM.DPC ---
DCP: continued: Received a call from [facility] . She states that pt is current under their HH services at the and also current with their Palliative Care program. DEVIN is faxing clinical to her now and will make sure resume HH orders are completed at d/c. Dr. Bill is taking over as hospitalist today. He saw pt, says she is not yet stable for d/c. Will be following. Pt will be appropriate for ambulance/BLS transport when she is stable for return to the .
--- NOTE | 2018-05-09 13:41 | DIET.PN ---
Poor PO intake; eating approx 25-50% meals. Reports appetite not good. Weight change unknown as pt does not monitor. Wt: 68kg BMI 24 NFPE: mild loss in temporals noted MNA: 10, suggesting mild risk pcm, mostly r/t decreased mobility and psyche INTERVENTION: Send sepideh Enlive BID to help boost nutrition. Encouraged pt to sip on these between meals as she does not want any more items added to meals
--- NOTE | 2018-05-09 13:46 | DIET.PN ---
Visited during lunch. Eating small meals - 25-50% per RN notes. USUAL DIET: 1 meal daily (Meals on Wheels). With further inquiry, admits to eating a protein in morning and a protein with salad in evening with lunch being main meal. Avoids sugar and tries to keep carbs down. Does not avoid salt - limits salt by using a universal grinder tool which she states is difficult for her to manage, so this limits amount. APPETITE: Poor. Some nausea still WT: 126kg BMI 54 Reports lost 70# on keto diet; regained about 1/2 back. Considering keto again. Provided ed on affect of sodium on fluid retention and identifying carbs on our menus. Offered to change diet to restrict carbs, but pt did not wish to do this.
[2018-05-09] MEDS: CEFTRIAXONE 1 GM/50 ML FROZ.PIGGY IV (17:22)
[2018-05-09] MEDS: SODIUM CHLORIDE 0.9% 250 ML 21 ML IV (17:28)
[2018-05-09] MEDS: SERTRALINE 50 MG TABLET 100 MG PO (21:21)
--- NOTE | 2018-05-09 22:22 | PC.NURSE ---
Pt is A and O x 4, VSS. Pt J tube C/D/I. Pt rates pain 5/10, primarily R shoulder but also all over. S1, S2, LS course in bases, diminished, on 2L NC. SCDs in place. Pt did IS x 2 this shift, 1000.
[2018-05-10] VITALS (8 sets, daily range): BP systolic 107–119; BP diastolic 20–78; PULSE 80–95; RESP 17–24; TEMP 36.7–37; O2SAT 90–94
[2018-05-10] MEDS: OXYCODONE IR 5 MG TABLET PO ×4 (04:20→22:10)
[2018-05-10] MEDS: LEVOTHYROXINE 100 MCG TABLET PO (06:29)
[2018-05-10] MEDS: HEPARIN 5,000 UNIT/ML VIAL 5000 UNIT SUBCUT ×2 (09:06→21:41)
[2018-05-10] MEDS: METHADONE 5 MG TABLET 15 MG PO ×3 (09:07→21:42)
[2018-05-10] MEDS: SODIUM CHLORIDE 0.9% FLUSH 10 ML IV ×2 (09:07→21:15)
[2018-05-10] MEDS: PREGABALIN 75 MG CAPSULE PO (09:07)
[2018-05-10] MEDS: THIAMINE 100 MG TABLET PO (09:08)
[2018-05-10] MEDS: CEFTRIAXONE 1 GM/50 ML FROZ.PIGGY IV (16:40)
--- NOTE | 2018-05-10 17:32 | P.PN_ITS ---
Subjective Date Patient Seen: 05/10/18 Interval history: Patient states feeling better and less phlegm coming out of her tracheostomy opening. Exam Vital Signs (past 8 hours): - 05/10/18 11:20 05/10/18 11:35 05/10/18 15:35 Temperature 98.0 F 98.0 F Pulse Rate 83 81 Respiratory Rate 20 18 Blood Pressure 112/20 L 114/75 Pulse Oximetry 94 92 91 Fraction of Inspired Oxygen 21 Oxygen Delivery Method High Flow Nasal Cannula Oxygen Flow Rate 2 Narrative Exam Narrative: GENERAL: Alert pleasant elderly female in no acute distress HEENT: Pupils equal CHEST: Diminished breath sounds and crackles in mid to lower right lung german. No wheeze. CARDIAC: Regular rate and rhythm ABDOMEN: Nondistended, soft, nontender EXTREMITIES: no edema. NEUROLOGICAL: Nonfocal SKIN: Warm, dry, no petechiae, no rash Objective Labs Result Diagrams: 05/09/18 08:20 05/08/18 05:07 Assessment & Plan Plan: Assessment/Plan Narrative: 1. Right lobe bacterial pneumonia, likely usual gram-positive and gram- negative organisms. She has improvement in respiratory symptoms as well as vitals, with WBC and procalcitonin trending down. Continue on her Rocephin IV and transitioned to cefuroxime 500 mg twice daily for 1 week as outpatient. Of note, she has extensive right lung pneumonia on x-ray which will take a while for the lung infiltrates to clear up on imaging. 2. Acute hypoxic respiratory failure secondary to pneumonia. Patient remains O2 dependent, sat 91% on 2 L, but drops into the mid 80s on room air. She will need to go home on O2 until lung sufficiently recover. 3. Sepsis due to pneumonia. Resolved. 4. Urinary bacteria colonization due to E coli and Pseudomonas aeruginosa, associated with chronic urinary catheter. Her Licea catheter was replaced. Clinical UTI unlikely. 5. Acute renal failure, resolved 6. Anemia, stable at hemoglobin 9.1 7. Chronic pain syndrome/opioid dependence, history of fibromyalgia and neuropathy. Continued on her maintenance methadone and oxycodone 8. Migraine headache. Has Compazine IV as needed. 9. Hypothyroidism. 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 Disposition: Patient is clinically stable for hospital discharge back to [facility] on oral antibiotic. However she has persistent respiratory failure due to the pneumonia and neuro degenerative disease which will require continued supplemental O2 at home. We are working on insurance authorization for home O2. I have seen and evaluated the patient and we have discussed the need for the use of oxygen. Alternative treatments were tried and/or considered and were determined to be clinically ineffective. The diagnoses for home O2 would include A81.00 and G 31.9. Quality VTE Deep Vein Thrombosis/Pulmonary Embolism Present on Admission: No
--- NOTE | 2018-05-10 17:40 | CM.DPC ---
DCP: continued: 2 hours spend this afternoon in coordination of safe and appropriate d/c plan. Main points: Dr. Ramos deemed pt stable for a return to her [facility] with 02 this afternoon. Spoke with [facility] doctor. She stated she could accept pt back at any time: needed new medication order faxed to [facility]. This was done after updating Dr. Ramos re route of med: via tube, not oral. Resume HH orders were obtained and faxed to [facility]. Spoke also with Saurav. She noted that they could see pt this Thus. No d/c summary was available but did fax d/c medication list.. Met with pt and noted her motorized w/c now in room. She said her brought it in a couple days ago. Called Carlos: cell: [phone]. He agreed to pick pt up after work, 1900 in the w/c van as this would give RT time to get the o2 in place. Had a few conversations with RT. At 1615 RT stated that they had been unable to get an auth for the o2 from [facility] as available documentation from physician did not support need. Conferred with RT and DR. Ramos. Decision: cancel the d/c for now as clearly pt cannot go home without o2 in place and, tho this may be able to be authorized tomorrow after Flora provides some specific quidelines, it is far from certain. Updated all of the above involved parties (was only able to leave a vm for Carlos) re need to cancel the d/c for this evening...... P: DCP team to discuss in Team Rounds tomorrow with Dr. Ramos and with RT and follow closely. RN on soco shift was updated as well as RN coordinator: Mark Maynard
[2018-05-10] MEDS: SERTRALINE 50 MG TABLET 100 MG PO (21:42)
[2018-05-10] MEDS: ACETAMINOPHEN SUSP 650 MG/20.3 ML UDC PO (22:06)
[2018-05-11] VITALS (8 sets, daily range): BP systolic 110–118; BP diastolic 66–79; PULSE 67–85; RESP 16; TEMP 36.7–36.9; O2SAT 91–94
[2018-05-11] MEDS: OXYCODONE IR 5 MG TABLET PO ×3 (01:40→13:06)
[2018-05-11] MEDS: HEPARIN 5,000 UNIT/ML VIAL 5000 UNIT SUBCUT (08:35)
[2018-05-11] MEDS: LEVOTHYROXINE 100 MCG TABLET PO (08:35)
[2018-05-11] MEDS: PREGABALIN 75 MG CAPSULE PO (08:35)
[2018-05-11] MEDS: THIAMINE 100 MG TABLET PO (08:36)
[2018-05-11] MEDS: SODIUM CHLORIDE 0.9% FLUSH 10 ML IV (08:36)
[2018-05-11] MEDS: METHADONE 5 MG TABLET 15 MG PO ×2 (08:41→14:59)
--- NOTE | 2018-05-11 10:51 | RT ---
Scot from [facility] [place] called back and stated pt's insurance approved home O2 with dx of A81.00. Informed pt, Dr. Brown, Nurse Valentina and Sophia at discharge planning. t
--- NOTE | 2018-05-11 15:35 | CM.DPC ---
DCP Cont: Called and spoke to Respiratory Therapist. Stated that he was on the phone with patient's insurance, and did get approved for oxygen. Stated that patient will be returning home with a portable, but can call [employer] and order delivery. Called [place] of [facility] and let them know. Spoke to Saurav at [facility]. Stated that patient was not discharged yesterday secondary to not having oxygen available. Let her know that patient is to be discharged today. Medications have been ordered at [facility], [facility] deliver. New discharge summary will be faxed to [facility]. Called and spoke to , Carlos, who was at work. Stated that he could not pear picker patient until approximately 6:00pm. Tried Medicaid transport as well. called back and stated that his daughter could pear picker patient between 3:30-4:00. Medicaid was able to pear picker patient until 6:00pm. Expecting family to pear picker patient this afternoon. P:Patient is to be discharged back to [facility] today. Alexus Narvaez RN/Molded Goods Inspector Trimmer
--- NOTE | 2018-05-11 17:12 | P.DS_ITS ---
History of Present Illness Chief complaint: Cough, hypoxia Narrative: The patient is a 53-year-old female with PMH significant for Creutchfeld Asa, fibromyalgia, chronic pain syndrome, h/o bowel obstruction (s /p resection, J-tube present), reflux esophagitis, migraine headaches, hypothyroidism, prior tobacco dependence, and h/o malignancy (ovarian and uterine). Patient is being transferred from an adult family out of concern for pneumonia. Specific symptoms included 1 week history of productive cough with worsening purulence (green/yellow) and hypoxia. Associated symptoms include dyspnea, pleurisy, headache, and neck pain. Patient is not known to have oxygen dependence. Patient is unable to recall if she has experienced chills. She reports being told of a fever earlier this morning prior to hospital presentation. Denies chest pain, palpitations, dizziness, lightheadedness, or syncopal events. She has not experienced abdominal pain, nausea, or vomiting. She is known to have diarrhea that is intermittent and does not report bowel movements being different from her baseline. Patient does have a J-tube in place. She is known to have routine migraine headaches for which she takes Excedrin. Headache she experiences at present time is of lesser magnitude then the headache she typically experiences. Reports neck discomfort which she describes as electrical vibes of cervical spine. Denies neck stiffness. Patient has some type of urinary dysfunction for which she requires a chronic Licea catheter. Known to have a history of recurrent UTIs. Denies recent illness or hospitalizations. On presentation to ED found to be febrile and tachycardic. ED Work-UP WBC 13 Hgb 9.2 Plt 290 Na 139 K 4.6 Cl 100 Ca 8.3 CO2 29 Glu 105 BUN 16 sCr 1.3 GFR 42.8 BUN/Cr 12.3 Lactate 0.7 UA + leukocyte esterase, + urine nitrite, urine WBC > 100, urine bacteria > 30, CXR revealed right pulmonary radiopacities effusion suspicious for pneumonia. Received NS bolus 2040, levofloxacin 750 mg, acetaminophen 1020 mg, oxycodone 10 mg, percocet 5/325 Discharge Providers Date of admission: 05/04/18 15:03 Primary care physician: DANILO Lee Consults: 05/04/18 18:31 Consult to Pastoral Services Routine Comment: for spiritual support 05/05/18 04:13 Consult to Physical Therapy Evaluate & Treat Comment: Physician Instructions: Evaluate and Treat 05/10/18 15:46 Consult to Home Health Routine Comment: open to [facility] Reason For Exam: resume home health services Discharge provider: Buzz Ramos MD Discharge Date: 05/11/18 Summary Discharge Diagnosis: 1. Right lobe bacterial pneumonia, likely usual gram- positive and gram-negative organisms, negative cultures 2. Acute hypoxic respiratory failure secondary to pneumonia 3. Sepsis due to pneumonia 4. Urinary tract bacterial colonization secondary to chronic urinary catheter 5. Acute kidney injury, pre renal, resolved 6. Anemia, microcytic, unknown chronicity 7. Chronic pain with opioid dependency 8. Creutzfeldt Asa disease Hospital Course: 1. Right lobe bacterial pneumonia, likely usual gram-positive and gram-negative organisms. She has improvement in respiratory symptoms as well as vitals, with WBC and procalcitonin trending down. In-hospital treated with Rocephin IV and transitioned to cefuroxime 500 mg twice daily for 1 week as outpatient. Of note, she has extensive right lung pneumonia on x-ray which will take a while for the lung infiltrates to clear up on imaging. 2. Acute hypoxic respiratory failure secondary to pneumonia. Patient remains O2 dependent. She will need to go home on O2 until lung sufficiently recover. 3. Sepsis due to pneumonia. Resolved. 4. Urinary bacteria colonization due to E coli and Pseudomonas aeruginosa, associated with chronic urinary catheter. Her Licea catheter was replaced. Clinical UTI unlikely. 5. Acute renal failure, resolved 6. Anemia, stable at hemoglobin 9.1, unknown chronicity and unknown any previous workup, will follow up with PCP 7. Chronic pain syndrome/opioid dependence, history of fibromyalgia and neuropathy. Continued on her maintenance methadone and oxycodone 8. Neuro degenerative HAIR PREPARER disease, history of Creutzfeldt chandana with functional debility. Disposition: Patient is clinically stable for hospital discharge back to adult family home on oral antibiotic. Patient was hypoxic at rest on room air, with O2 sats of 87%. At rest on 2 L nasal cannula her O2 sats improved to 92%. She is non ambulatory. I am ordering home O2 at 2 L continuously to treat her resolving pneumonia and ICD code 81.004 her neurodegenerative disease. Status at Discharge Overall status at discharge: patient is back to baseline Time Spent with Patient Greater than 30 minutes Exam Vital Signs (past 8 hours): - 05/11/18 11:36 05/11/18 13:24 Pulse Oximetry 93 91 Fraction of Inspired Oxygen 21 Oxygen Delivery Method Nasal Cannula Oxygen Flow Rate 2 Objective Labs Result Diagrams: 05/09/18 08:20 05/08/18 05:07 Discharge Plan Discharge Plan Patient Disposition: Home Discharge Med Rec/Prescriptions Prescriptions: New cefuroxime axetil 500 mg tablet 500 mg PO Q12H 7 Days Qty: 14 RF: 0 Continue loperamide 2 mg Capsule 2 cap Feeding Tube Q4H MDD 16 MG PRN (Reason: Loose Stool) RF: 0 cetirizine 10 mg Tablet 1 tab Feeding Tube DAILY PRN (Reason: Allergy Symptoms) RF: 0 miconazole nitrate 2 % cream 1 applic Topical 3-4XD RF: 0 methadone 10 mg Tablet 15 mg Feeding Tube TID RF: 0 thiamine HCl (vitamin B1) 100 mg Tablet 100 mg Feeding Tube DAILY RF: 0 acetaminophen 500 mg Tablet 1 - 2 tab Feeding Tube PRN MDD 3000 mg PRN (Reason: Pain, Mild) RF: 0 levothyroxine 100 mcg tablet 1 tab Feeding Tube DAILY RF: 0 trazodone 100 mg tablet 1 tab Feeding Tube BEDTIME RF: 0 polyethylene glycol 3350 [Miralax] 17 gram/dose Powder 8.5 g Feeding Tube DAILY PRN (Reason: Constipation) RF: 0 sertraline 20 mg/mL concentrate 7.5 ml Feeding Tube QPM RF: 0 ondansetron 4 mg Tablet,Disintegrating 1 tab Feeding Tube PRN PRN (Reason: Nausea) RF: 0 kcveptc-mmxrrvdzaibix-ezwlimty [Excedrin Migraine] 250-250-65 mg Tablet 2 tab Feeding Tube DAILY PRN (Reason: Migraine Headache) RF: 0 water Liquid 100 ml PO QID RF: 0 pregabalin 150 mg capsule 1 cap Feeding Tube TID RF: 0 fluticasone furoate 27.5 mcg/actuation [place],Suspension 1 spray Intranasal DAILY PRN (Reason: Allergy Symptoms) RF: 0 diclofenac sodium 1 % gel 2 g Topical TID PRN (Reason: RIGHT SHOULDER PAIN) RF: 0 miconazole nitrate 2 % (100 mg)- 2 % (9 gram) Comb Pack,Prefill Appl, Cream 1 applic Vaginal PRN PRN (Reason: YEAST INFECTION) RF: 0 oxycodone 5 mg tablet 1 - 2 tab Feeding Tube Q3H MDD 8 tabs PRN (Reason: Pain, Severe) RF: 0 dextromethorphan-guaifenesin [Tussin DM] 10-100 mg/5 mL Syrup 10 ml Feeding Tube Q4H PRN (Reason: Cough) RF: 0 Follow up/Referrals: Danielle Senior ARNP [Primary Care Provider] - 1 Week (please call & schedule follow up with your primary care provider for 1 week after discharge ) Visit Report/Discharge Packet Instructions: Pneumonia-Adult, Oxygen Therapy Visit Report Forms: Stroke Signs & Symptoms Discharge Data Primary Care Provider: Danielle Senior Attending Provider: Cass Hall Admit Date/Time: 05/04/18 15:03 Discharges patient from system. Discharge Date/Time: 05/11/18 15:45 Quality VTE Deep Vein Thrombosis/Pulmonary Embolism Present on Admission: No
== END 2018-05-11 15:45 | disposition home or self-care (01) | DRG 871 ==
LOC: ED 14:57 → AC 15:04
PROVIDERS: Family Medicine; Internal Medicine; Nurse Practitioner Gerontology; Admitting Provider Internal Medicine; Emergency Provider Emergency Medicine; Family Provider Nurse Practitioner Gerontology; PCP Nurse Practitioner Gerontology; Visit Provider Internal Medicine
DX: A41.9 Sepsis, unspecified organism (principal); J18.1 Lobar pneumonia, unspecified organism; J15.8 Pneumonia due to other specified bacteria; J15.6 Pneumonia due to other Gram-negative bacteria; J96.01 Acute respiratory failure with hypoxia; A81.00 Creutzfeldt-Jakob disease, unspecified; F11.20 Opioid dependence, uncomplicated; T83.511A Infection and inflammatory reaction due to indwelling urethral catheter, initial encounter; J91.8 Pleural effusion in other conditions classified elsewhere; R65.20 Severe sepsis without septic shock; G89.4 Chronic pain syndrome; B96.20 Unspecified Escherichia coli [E. coli] as the cause of diseases classified elsewhere; B96.5 Pseudomonas (aeruginosa) (mallei) (pseudomallei) as the cause of diseases classified elsewhere; E03.9 Hypothyroidism, unspecified; Z93.4 Other artificial openings of gastrointestinal tract status
CPT/HCPCS: 36415; 36591; 71045; 80048; 80053; 81001; 83605; 83690; 84145; 85025; 85610; 85730; 87040; 87077; 87086; 87186; 93005; 93010; 93041; 94618; 94760; 96361; 96365; 96366; 99285; J0780; J1644; J1885; J1956

== ENCOUNTER → 2018-07-20 10:28 | Outpatient (CLI) | payer OTHER, MEDICAID, SELFPAY ==
[2018-05-04 16:59] VITALS: BMI 23.5
--- NOTE | 2018-07-20 | DI.US.S_ITS ---
PROCEDURE: US RENAL COMPLETE INDICATIONS: Unspecified hydronephrosis TECHNIQUE: Real-time scanning was performed of the kidneys and bladder, with image documentation. COMPARISON: [facility], CT, ABDOMEN/PELVIS WITH CONTRAST, 06/05/2009, 10:55. [facility], [place], RENAL IMAGING WITH LASIX, 03/22/2017, 9:44. [facility], XA, SI NEPHROSTOMY TUBE REMOVAL, 07/07/2017, 16:04. [facility], CT, CT ANGIO CHEST PE, 06/22/2018, 12:49. FINDINGS: Kidneys: Kidneys are normal in size. Right kidney measures 11.4 cm long; left kidney measures 10.6 cm long. Right renal cortical thickness is 0.8 cm; left renal cortical thickness is 1.6 cm. Renal cortical echotexture is normal. Severe right and mild left hydronephrosis. Bladder: Licea catheter present in urinary bladder is empty. Miscellaneous: No free pelvic fluid. IMPRESSION: 1. Severe right and mild left hydronephrosis. 2. Right renal cortical thinning. Dictated by: Damir Garcia [facility] Interpreted: Gopi Wakefield MD on 07/20/2018 at 12:59 Approved by: Gopi Wakefield M.D. on 07/20/2018 at 18:27
== END ==
PROVIDERS: Family Provider Nurse Practitioner Gerontology; PCP Nurse Practitioner Gerontology; Visit Provider Urology
DX: N13.30 Unspecified hydronephrosis (principal)
CPT/HCPCS: 76770

== ENCOUNTER 2018-08-23 20:11 | Emergency (ER) | payer OTHER, MEDICAID, SELFPAY ==
[2018-05-04 16:59] VITALS: BMI 23.5
[2018-08-23 20:30] VITALS: BP 83/66; PULSE 102; RESP 15; TEMP 37.1; O2SAT 92
--- NOTE | 2018-08-23 20:33 | ED.FEMALEGU ---
HPI - Female Genitourinary General Chief complaint: Urogenital-Female Stated complaint: blood in urine Time Seen by Provider: 08/23/18 20:23 Related Data Home Medications Medication Instructions Recorded Confirmed acetaminophen 1 - 2 tab FEEDING TUBE PRN PRN MDD 05/04/18 05/04/18 3000 mg uaqhtsa-qdfpkxourrsvm-maywhwip 2 tab FEEDING TUBE DAILY PRN 05/04/18 05/04/18 [Excedrin Migraine] cetirizine 1 tab FEEDING TUBE DAILY PRN 05/04/18 05/04/18 dextromethorphan-guaifenesin 10 ml FEEDING TUBE Q4H PRN 05/04/18 05/04/18 [Tussin DM] diclofenac sodium 2 g TOPICAL TID PRN 05/04/18 05/04/18 fluticasone furoate 1 spray INTRANASAL DAILY PRN 05/04/18 05/04/18 levothyroxine 1 tab FEEDING TUBE DAILY 05/04/18 05/04/18 loperamide 2 cap FEEDING TUBE Q4H PRN MDD 16 05/04/18 05/04/18 MG methadone 15 mg FEEDING TUBE TID 05/04/18 05/04/18 miconazole nitrate 1 applic TOPICAL 3-4XD 05/04/18 05/04/18 miconazole nitrate 1 applic VAGINAL PRN PRN 05/04/18 05/04/18 ondansetron 1 tab FEEDING TUBE PRN PRN 05/04/18 05/04/18 oxycodone 1 - 2 tab FEEDING TUBE Q3H PRN MDD 05/04/18 05/04/18 8 tabs polyethylene glycol 3350 [Miralax] 8.5 g FEEDING TUBE DAILY PRN 05/04/18 05/04/18 pregabalin 1 cap FEEDING TUBE TID 05/04/18 05/04/18 sertraline 7.5 ml FEEDING TUBE QPM 05/04/18 05/04/18 thiamine HCl (vitamin B1) 100 mg FEEDING TUBE DAILY 05/04/18 05/04/18 trazodone 1 tab FEEDING TUBE BEDTIME 05/04/18 05/04/18 water 100 ml PO QID 05/04/18 05/04/18 Allergies Allergy/AdvReac Type Severity Reaction Status Date / Time clindamycin Allergy Severe Anaphylaxis Verified 08/23/18 20:30 Penicillins Allergy Severe Anaphylaxis Verified 08/23/18 20:30 [facility] Social History details: Lives in Adult Care facility Smoking Status: Former smoker alcohol intake: never Exam Initial Vital Signs Initial Vital Signs: Vital Signs Temperature 98.7 F 08/23/18 20:30 Pulse Rate 102 H 08/23/18 20:30 Respiratory Rate 15 08/23/18 20:30 Blood Pressure 83/66 L 08/23/18 20:30 Pulse Oximetry 92 08/23/18 20:30 Course Vital Signs - 8 hr 08/23/18 20:30 Temperature 98.7 F Pulse Rate 102 H Respiratory Rate 15 Blood Pressure 83/66 L Pulse Oximetry 92 Discharge Plan Departure Prescriptions: No Action loperamide 2 mg Capsule 2 cap Feeding Tube Q4H MDD 16 MG PRN (Reason: Loose Stool) RF: 0 cetirizine 10 mg Tablet 1 tab Feeding Tube DAILY PRN (Reason: Allergy Symptoms) RF: 0 miconazole nitrate 2 % cream 1 applic Topical 3-4XD RF: 0 methadone 10 mg Tablet 15 mg Feeding Tube TID RF: 0 thiamine HCl (vitamin B1) 100 mg Tablet 100 mg Feeding Tube DAILY RF: 0 acetaminophen 500 mg Tablet 1 - 2 tab Feeding Tube PRN MDD 3000 mg PRN (Reason: Pain, Mild) RF: 0 levothyroxine 100 mcg tablet 1 tab Feeding Tube DAILY RF: 0 trazodone 100 mg tablet 1 tab Feeding Tube BEDTIME RF: 0 polyethylene glycol 3350 [Miralax] 17 gram/dose Powder 8.5 g Feeding Tube DAILY PRN (Reason: Constipation) RF: 0 sertraline 20 mg/mL concentrate 7.5 ml Feeding Tube QPM RF: 0 ondansetron 4 mg Tablet,Disintegrating 1 tab Feeding Tube PRN PRN (Reason: Nausea) RF: 0 xlzeijt-vbkuibjtudyvv-elqqgkoi [Excedrin Migraine] 250-250-65 mg Tablet 2 tab Feeding Tube DAILY PRN (Reason: Migraine Headache) RF: 0 water Liquid 100 ml PO QID RF: 0 pregabalin 150 mg capsule 1 cap Feeding Tube TID RF: 0 fluticasone furoate 27.5 mcg/actuation [place],Suspension 1 spray Intranasal DAILY PRN (Reason: Allergy Symptoms) RF: 0 diclofenac sodium 1 % gel 2 g Topical TID PRN (Reason: RIGHT SHOULDER PAIN) RF: 0 miconazole nitrate 2 % (100 mg)- 2 % (9 gram) Comb Pack,Prefill Appl, Cream 1 applic Vaginal PRN PRN (Reason: YEAST INFECTION) RF: 0 oxycodone 5 mg tablet 1 - 2 tab Feeding Tube Q3H MDD 8 tabs PRN (Reason: Pain, Severe) RF: 0 dextromethorphan-guaifenesin [Tussin DM] 10-100 mg/5 mL Syrup 10 ml Feeding Tube Q4H PRN (Reason: Cough) RF: 0
--- NOTE | 2018-08-23 20:36 | ED.FEMALEGU ---
HPI - Female Genitourinary <DANILO Casey - Last Filed: 08/23/18 21:59> General Chief complaint: Urogenital-Female Stated complaint: blood in urine Time Seen by Provider: 08/23/18 20:23 Source: patient and family Mode of arrival: wheelchair Limitations: no limitations History of Present Illness HPI Narrative: 53-year-old female with history of cervical cancer and is a former smoker here for complaint of having blood in her urine over the past couple of days. 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 She has a significant history of kidney and ureter issues with frequent urinary tract infections secondary to radiation while treating her cervical cancer. She has recently had a stent placed in the left ureter to facilitate better urine passage. She states she has some left flank pain. She also reports having left abdominal pain as well. No fevers. Positive p.o. intake. No nausea vomiting. She denies any trauma. She is currently followed by Urology at [facility] Dr. Myles. She does have a suprapubic urinary catheter that is draining well at this timeframe. MD Complaint: other Related Data Home Medications Medication Instructions Recorded Confirmed acetaminophen 1 - 2 tab FEEDING TUBE PRN PRN MDD 05/04/18 05/04/18 3000 mg zwsusax-gpsrvmrbnsrzb-zxfwlxyp 2 tab FEEDING TUBE DAILY PRN 05/04/18 05/04/18 [Excedrin Migraine] cetirizine 1 tab FEEDING TUBE DAILY PRN 05/04/18 05/04/18 dextromethorphan-guaifenesin 10 ml FEEDING TUBE Q4H PRN 05/04/18 05/04/18 [Tussin DM] diclofenac sodium 2 g TOPICAL TID PRN 05/04/18 05/04/18 fluticasone furoate 1 spray INTRANASAL DAILY PRN 05/04/18 05/04/18 levothyroxine 1 tab FEEDING TUBE DAILY 05/04/18 05/04/18 loperamide 2 cap FEEDING TUBE Q4H PRN MDD 16 05/04/18 05/04/18 MG methadone 15 mg FEEDING TUBE TID 05/04/18 05/04/18 miconazole nitrate 1 applic TOPICAL 3-4XD 05/04/18 05/04/18 miconazole nitrate 1 applic VAGINAL PRN PRN 05/04/18 05/04/18 ondansetron 1 tab FEEDING TUBE PRN PRN 05/04/18 05/04/18 oxycodone 1 - 2 tab FEEDING TUBE Q3H PRN MDD 05/04/18 05/04/18 8 tabs polyethylene glycol 3350 [Miralax] 8.5 g FEEDING TUBE DAILY PRN 05/04/18 05/04/18 pregabalin 1 cap FEEDING TUBE TID 05/04/18 05/04/18 sertraline 7.5 ml FEEDING TUBE QPM 05/04/18 05/04/18 thiamine HCl (vitamin B1) 100 mg FEEDING TUBE DAILY 05/04/18 05/04/18 trazodone 1 tab FEEDING TUBE BEDTIME 05/04/18 05/04/18 water 100 ml PO QID 05/04/18 05/04/18 Allergies Allergy/AdvReac Type Severity Reaction Status Date / Time clindamycin Allergy Severe Anaphylaxis Verified 08/23/18 20:30 Penicillins Allergy Severe Anaphylaxis Verified 08/23/18 20:30 baclofen Allergy Verified 08/23/18 21:32 Review of Systems <DANILO Casey - Last Filed: 08/23/18 21:59> Constitutional Denies chills, Denies fever(s), Denies lethargy and Denies weakness Eyes Denies change in vision, Denies eye discharge, Denies irritation and Denies loss of vision ENT Ears, Nose, Mouth, and Throat: Denies change in voice, Denies neck pain and Denies sore throat Cardiovascular Denies chest pain, Denies irregular heart rhythm, Denies lightheadedness, Denies palpitations, Denies dyspnea, Denies dyspnea on exertion and Denies orthopnea Respiratory Denies cough, Denies dyspnea, Denies dyspnea on exertion and Denies wheezing Gastrointestinal Gastrointestinal: Denies abdominal pain, Denies change in bowel habits, Denies diarrhea, Denies nausea and Denies vomiting Comments: Left lower quadrant pain Genitourinary Denies hematuria, Denies flank pain, Denies urinary incontinence and Denies urinary urgency Comments: Left flank pain and hematuria Musculoskeletal Denies neck pain Integumentary/Breasts Denies pruritus, Denies erythema, Denies rash and Denies wounds Neurologic Denies confusion, Denies loss of vision and Denies weakness Psychiatric Denies anxiety, Denies confusion, Denies depression, Denies homicidal ideation and Denies suicidal ideation Endocrine Denies palpitations Allergic/Immunologic Denies wheezing PFSH <DANILO Casey - Last Filed: 08/23/18 21:59> Medical History Bowel obstruction (Acute) Creutzfeldt Evans disease (Acute) H/O: hysterectomy (Acute) Hypothyroid (Acute) Jejunostomy tube present (Acute) Ovarian cancer (Acute) Reflux esophagitis (Acute) Uterine cancer (Acute) Surgical History H/O fasciotomy (Acute) H/O left knee surgery (Acute) Social History details: Lives in Adult Care facility Smoking Status: Former smoker alcohol intake: never Social History details: Lives in Adult Care facility Smoking Status: Former smoker alcohol intake: never Exam <DANILO Casey - Last Filed: 08/23/18 21:59> Initial Vital Signs Initial Vital Signs: Vital Signs Temperature 98.7 F 08/23/18 20:30 Pulse Rate 102 H 08/23/18 20:30 Respiratory Rate 15 08/23/18 20:30 Blood Pressure 83/66 L 08/23/18 20:30 Pulse Oximetry 92 08/23/18 20:30 Const General: cooperative Nutritional Appearance: well nourished Orientation: alert, awake, oriented x3 and not confused [facility] Mouth: oral mucosae normal and moist mucous membranes Eyes General: appearance normal, both eyes and all related structures Eyelids: eyelids normal Conjunctivae: conjunctivae normal Sclera: sclerae normal Pupils: fixed (Pupils neuro and affects presents as due to opiate pain medication) bilaterally EOM: EOM intact bilaterally Cardio Rate: regular rate Rhythm: regular rhythm Heart Sounds: no click, no gallops, no murmurs and no rubs Pulses: normal peripheral pulses GI Inspection: non-distended Palpation: soft, no hepatosplenomegaly, No guarding, No pulsatile mass and tender (Tenderness left lower quadrant area.) Auscultation: normal bowel sounds Other: Suprapubic catheter site with no signs of infection. General: No CVA tenderness Skin General: no rashes or lesions noted, No jaundice and No petechiae Neuro General: alert, oriented x3, gait normal and no focal motor deficits Speech: speech normal <Kirsten Kelly DO - Last Filed: 08/24/18 02:24> Initial Vital Signs Initial Vital Signs: Vital Signs Temperature 98.7 F 08/23/18 20:30 Pulse Rate 102 H 08/23/18 20:30 Respiratory Rate 15 08/23/18 20:30 Blood Pressure 83/66 L 08/23/18 20:30 Pulse Oximetry 92 08/23/18 20:30 Course <DANILO Casey - Last Filed: 08/23/18 21:59> Orders Ordered: ED Orders 08/23/18 20:40 Urinalysis and Microscopic Stat Urine Culture Stat 08/23/18 20:43 CT abdomen pelvis w con Stat 08/23/18 20:55 Complete Blood Count AUTO DIFF Stat Comprehensive Metabolic Panel Stat Lactate (Lactic Acid) Stat Procalcitonin Stat Prothrombin Time INR Stat 08/23/18 21:12 Blood Culture Stat Discontinued Medications Sodium Chloride (Normal Saline 0.9%) 1,000 mls @ 1,000 mls/hr IV BOLUS ONE Stop: 08/23/18 21:36 Last Admin: 08/23/18 22:20 Dose: Not Given Sodium Chloride (Normal Saline 0.9%) 1,000 mls @ 1,000 mls/hr IV BOLUS ONE Stop: 08/23/18 21:47 Last Infusion: 08/23/18 22:45 Dose: 0 mls/hr Admin: 08/23/18 21:06 Dose: 1,000 mls/hr Sodium Chloride (Normal Saline 0.9%) 1,000 mls @ 1,000 mls/hr IV BOLUS ONE Stop: 08/23/18 23:41 Last Infusion: 08/23/18 23:37 Dose: 0 mls/hr Admin: 08/23/18 22:44 Dose: 1,000 mls/hr Vital Signs - 8 hr 08/23/18 20:30 08/23/18 21:01 08/23/18 21:15 Temperature 98.7 F Pulse Rate 102 H 78 79 Respiratory Rate 15 15 Blood Pressure 83/66 L Blood Pressure [Right Arm] 92/59 L 92/59 L Pulse Oximetry 92 96 93 08/23/18 22:00 08/23/18 22:44 08/23/18 23:00 Temperature 97.6 F Pulse Rate 71 68 Respiratory Rate 17 16 Blood Pressure Blood Pressure [Right Arm] 102/71 105/73 115/62 Pulse Oximetry 96 96 <Kirsten Kelly DO - Last Filed: 08/24/18 02:24> Orders Ordered: ED Orders 08/23/18 20:40 Urinalysis and Microscopic Stat Urine Culture Stat 08/23/18 20:43 CT abdomen pelvis w con Stat 08/23/18 20:55 Complete Blood Count AUTO DIFF Stat Comprehensive Metabolic Panel Stat Lactate (Lactic Acid) Stat Procalcitonin Stat Prothrombin Time INR Stat 08/23/18 21:12 Blood Culture Stat Discontinued Medications Sodium Chloride (Normal Saline 0.9%) 1,000 mls @ 1,000 mls/hr IV BOLUS ONE Stop: 08/23/18 21:36 Last Admin: 08/23/18 22:20 Dose: Not Given Sodium Chloride (Normal Saline 0.9%) 1,000 mls @ 1,000 mls/hr IV BOLUS ONE Stop: 08/23/18 21:47 Last Infusion: 08/23/18 22:45 Dose: 0 mls/hr Admin: 08/23/18 21:06 Dose: 1,000 mls/hr Sodium Chloride (Normal Saline 0.9%) 1,000 mls @ 1,000 mls/hr IV BOLUS ONE Stop: 08/23/18 23:41 Last Infusion: 08/23/18 23:37 Dose: 0 mls/hr Admin: 08/23/18 22:44 Dose: 1,000 mls/hr Vital Signs - 8 hr 08/23/18 20:30 08/23/18 21:01 08/23/18 21:15 Temperature 98.7 F Pulse Rate 102 H 78 79 Respiratory Rate 15 15 Blood Pressure 83/66 L Blood Pressure [Right Arm] 92/59 L 92/59 L Pulse Oximetry 92 96 93 08/23/18 22:00 08/23/18 22:44 08/23/18 23:00 Temperature 97.6 F Pulse Rate 71 68 Respiratory Rate 17 16 Blood Pressure Blood Pressure [Right Arm] 102/71 105/73 115/62 Pulse Oximetry 96 96 MDM - Female Genitourinary <DANILO Casey - Last Filed: 08/23/18 21:59> Lab Data Result diagrams: 08/23/18 20:55 08/23/18 20:55 Lab Results 08/23/18 08/23/18 08/23/18 Range/Units 20:40 20:55 20:55 WBC 5.8 (4.5-11.0) X10^3/uL RBC 4.44 (4.0-5.2) X10^6/uL Hgb 10.5 L (12.0-16.0) g/dL Hct 33.6 L (36-46) % MCV 75.7 L (80-100) fL MCH 23.7 L (26-34) PG MCHC 31.3 (30-36) % RDW 18.1 H (11.6-14.8) % Plt Count 219 (150-400) X10^3/uL Neut % (Auto) 63.8 (50-75) % Lymph % (Auto) 21.0 L (25-40) % [place] % (Auto) 6.6 (3-14) % Eos % (Auto) 8.0 H (2-4) % Baso % (Auto) 0.6 (0-2) % Neut # (Auto) 3700 (0443-7172) /uL Lymph # (Auto) 1200 (7711-6858) /uL [place] # (Auto) 400 (0-900) /uL Eos # (Auto) 500 H (0-450) /uL Baso # (Auto) 0 (0-100) /uL PT 11.8 (10.1-12.7) SECONDS INR 1.0 (0.9-1.3) Sodium (137-145) mmol/L Potassium (3.4-5.1) mmol/L Chloride (98-107) mmol/L Carbon Dioxide (22-32) mmol/L BUN (7-17) mg/dL Creatinine (0.52-1.04) mg/dL Estimated GFR (>60) mL/min BUN/Creatinine Ratio (6-22) Glucose (70-100) mg/dL Lactate (0.7-2.1) mmol/L Calcium (8.4-10.2) mg/dL Total Bilirubin (0.2-1.3) mg/dL AST (14-36) IU/L ALT (9-52) IU/L Alkaline Phosphatase (38-126) U/L Total Protein (6.3-8.2) g/dL Albumin (3.5-5.0) g/dL Globulin (1.7-4.1) g/dL Albumin/Globulin Ratio (1.0-2.8) Procalcitonin (<0.5) ng/mL Urine Color Yellow Urine Appearance Cloudy Urine pH 7.0 (4.5-8.0) Ur Specific [place] 1.010 (1.000-1.035) Urine Protein 2+ H (Negative) Urine Glucose (UA) Negative (Negative) g/dL Urine Ketones Negative (NEGATIVE) Urine Occult Blood 3+ H (Negative) Urine Nitrate Positive H (Negative) Urine Bilirubin Negative (NEGATIVE) Urine Urobilinogen 0.2 (0.2) E.U./dL Ur Leukocyte Esterase 2+ H (NEGATIVE) Urine RBC 10-30/hpf H (0-5/HPF) Urine WBC 10-30/hpf H (0-5/HPF) Ur Transition Epith Cell 1-5/hpf (0-5/HPF) Urine Bacteria None seen (None) Ur Culture Indicated? Specimen cultured 08/23/18 08/23/18 08/23/18 Range/Units 20:55 20:55 20:55 WBC (4.5-11.0) X10^3/uL RBC (4.0-5.2) X10^6/uL Hgb (12.0-16.0) g/dL Hct (36-46) % MCV (80-100) fL MCH (26-34) PG MCHC (30-36) % RDW (11.6-14.8) % Plt Count (150-400) X10^3/uL Neut % (Auto) (50-75) % Lymph % (Auto) (25-40) % [place] % (Auto) (3-14) % Eos % (Auto) (2-4) % Baso % (Auto) (0-2) % Neut # (Auto) (2235-4905) /uL Lymph # (Auto) (9000-2854) /uL [place] # (Auto) (0-900) /uL Eos # (Auto) (0-450) /uL Baso # (Auto) (0-100) /uL PT (10.1-12.7) SECONDS INR (0.9-1.3) Sodium 135 L (137-145) mmol/L Potassium 4.8 (3.4-5.1) mmol/L Chloride 100 (98-107) mmol/L Carbon Dioxide 25 (22-32) mmol/L BUN 17 (7-17) mg/dL Creatinine 1.30 H (0.52-1.04) mg/dL Estimated GFR 42.8 L (>60) mL/min BUN/Creatinine Ratio 13.1 (6-22) Glucose 92 (70-100) mg/dL Lactate 0.8 (0.7-2.1) mmol/L Calcium 8.8 (8.4-10.2) mg/dL Total Bilirubin 0.2 (0.2-1.3) mg/dL AST 19 (14-36) IU/L ALT 20 (9-52) IU/L Alkaline Phosphatase 90 (38-126) U/L Total Protein 7.5 (6.3-8.2) g/dL Albumin 3.9 (3.5-5.0) g/dL Globulin 3.6 (1.7-4.1) g/dL Albumin/Globulin Ratio 1.1 (1.0-2.8) Procalcitonin < 0.05 (<0.5) ng/mL Urine Color Urine Appearance Urine pH (4.5-8.0) Ur Specific [place] (1.000-1.035) Urine Protein (Negative) Urine Glucose (UA) (Negative) g/dL Urine Ketones (NEGATIVE) Urine Occult Blood (Negative) Urine Nitrate (Negative) Urine Bilirubin (NEGATIVE) Urine Urobilinogen (0.2) E.U./dL Ur Leukocyte Esterase (NEGATIVE) Urine RBC (0-5/HPF) Urine WBC (0-5/HPF) Ur Transition Epith Cell (0-5/HPF) Urine Bacteria (None) Ur Culture Indicated? [facility] Narrative Medical decision making narrative: CBC was obtained and shows hemoglobin and hematocrit at 10 and 33 however this is normal for her. WBCs are unremarkable. Chemistry panel shows creatinine at 1.3 and GFR at 42.8. Lactate was normal. Procalcitonin was normal. INR was unremarkable at 1. Urinalysis indicates urinary tract infection. CT of the abdomen and pelvis was obtained and results are pending. Due to change of shift care was turned over to Dr. Kelyl <Kirsten Kelly, DO - Last Filed: 08/24/18 02:24> Lab Data Attestation: I reviewed the patient's lab results. Lab Results 08/23/18 08/23/18 08/23/18 Range/Units 20:40 20:55 20:55 WBC 5.8 (4.5-11.0) X10^3/uL RBC 4.44 (4.0-5.2) X10^6/uL Hgb 10.5 L (12.0-16.0) g/dL Hct 33.6 L (36-46) % MCV 75.7 L (80-100) fL MCH 23.7 L (26-34) PG MCHC 31.3 (30-36) % RDW 18.1 H (11.6-14.8) % Plt Count 219 (150-400) X10^3/uL Neut % (Auto) 63.8 (50-75) % Lymph % (Auto) 21.0 L (25-40) % [place] % (Auto) 6.6 (3-14) % Eos % (Auto) 8.0 H (2-4) % Baso % (Auto) 0.6 (0-2) % Neut # (Auto) 3700 (7603-5243) /uL Lymph # (Auto) 1200 (6061-2097) /uL [place] # (Auto) 400 (0-900) /uL Eos # (Auto) 500 H (0-450) /uL Baso # (Auto) 0 (0-100) /uL PT 11.8 (10.1-12.7) SECONDS INR 1.0 (0.9-1.3) Sodium (137-145) mmol/L Potassium (3.4-5.1) mmol/L Chloride (98-107) mmol/L Carbon Dioxide (22-32) mmol/L BUN (7-17) mg/dL Creatinine (0.52-1.04) mg/dL Estimated GFR (>60) mL/min BUN/Creatinine Ratio (6-22) Glucose (70-100) mg/dL Lactate (0.7-2.1) mmol/L Calcium (8.4-10.2) mg/dL Total Bilirubin (0.2-1.3) mg/dL AST (14-36) IU/L ALT (9-52) IU/L Alkaline Phosphatase (38-126) U/L Total Protein (6.3-8.2) g/dL Albumin (3.5-5.0) g/dL Globulin (1.7-4.1) g/dL Albumin/Globulin Ratio (1.0-2.8) Procalcitonin (<0.5) ng/mL Urine Color Yellow Urine Appearance Cloudy Urine pH 7.0 (4.5-8.0) Ur Specific [place] 1.010 (1.000-1.035) Urine Protein 2+ H (Negative) Urine Glucose (UA) Negative (Negative) g/dL Urine Ketones Negative (NEGATIVE) Urine Occult Blood 3+ H (Negative) Urine Nitrate Positive H (Negative) Urine Bilirubin Negative (NEGATIVE) Urine Urobilinogen 0.2 (0.2) E.U./dL Ur Leukocyte Esterase 2+ H (NEGATIVE) Urine RBC 10-30/hpf H (0-5/HPF) Urine WBC 10-30/hpf H (0-5/HPF) Ur Transition Epith Cell 1-5/hpf (0-5/HPF) Urine Bacteria None seen (None) Ur Culture Indicated? Specimen cultured 08/23/18 08/23/18 08/23/18 Range/Units 20:55 20:55 20:55 WBC (4.5-11.0) X10^3/uL RBC (4.0-5.2) X10^6/uL Hgb (12.0-16.0) g/dL Hct (36-46) % MCV (80-100) fL MCH (26-34) PG MCHC (30-36) % RDW (11.6-14.8) % Plt Count (150-400) X10^3/uL Neut % (Auto) (50-75) % Lymph % (Auto) (25-40) % [place] % (Auto) (3-14) % Eos % (Auto) (2-4) % Baso % (Auto) (0-2) % Neut # (Auto) (5681-8639) /uL Lymph # (Auto) (6431-1481) /uL [place] # (Auto) (0-900) /uL Eos # (Auto) (0-450) /uL Baso # (Auto) (0-100) /uL PT (10.1-12.7) SECONDS INR (0.9-1.3) Sodium 135 L (137-145) mmol/L Potassium 4.8 (3.4-5.1) mmol/L Chloride 100 (98-107) mmol/L Carbon Dioxide 25 (22-32) mmol/L BUN 17 (7-17) mg/dL Creatinine 1.30 H (0.52-1.04) mg/dL Estimated GFR 42.8 L (>60) mL/min BUN/Creatinine Ratio 13.1 (6-22) Glucose 92 (70-100) mg/dL Lactate 0.8 (0.7-2.1) mmol/L Calcium 8.8 (8.4-10.2) mg/dL Total Bilirubin 0.2 (0.2-1.3) mg/dL AST 19 (14-36) IU/L ALT 20 (9-52) IU/L Alkaline Phosphatase 90 (38-126) U/L Total Protein 7.5 (6.3-8.2) g/dL Albumin 3.9 (3.5-5.0) g/dL Globulin 3.6 (1.7-4.1) g/dL Albumin/Globulin Ratio 1.1 (1.0-2.8) Procalcitonin < 0.05 (<0.5) ng/mL Urine Color Urine Appearance Urine pH (4.5-8.0) Ur Specific [place] (1.000-1.035) Urine Protein (Negative) Urine Glucose (UA) (Negative) g/dL Urine Ketones (NEGATIVE) Urine Occult Blood (Negative) Urine Nitrate (Negative) Urine Bilirubin (NEGATIVE) Urine Urobilinogen (0.2) E.U./dL Ur Leukocyte Esterase (NEGATIVE) Urine RBC (0-5/HPF) Urine WBC (0-5/HPF) Ur Transition Epith Cell (0-5/HPF) Urine Bacteria (None) Ur Culture Indicated? Imaging Data CT scan - abdomen: Radiologist's impression: PROCEDURE: CT ABDOMEN PELVIS W CON INDICATIONS: Flank pain hematuria and left lower quadrant pain TECHNIQUE: After the administration of intravenous contrast, 5 mm thick sections acquired from the diaphragm to the symphysis. 5 mm coronal and sagittal reformats were acquired. For radiation dose reduction, the following was used: automated exposure control, adjustment of mA and/or kV according to patient size. COMPARISON: Outside Film, CR, XR CHEST 2 VIEWS, 07/26/2018, 18:41. [facility], CT, CT ANGIO CHEST PE, 06/22/2018, 12:49. [facility], CT, ABDOMEN/PELVIS WITH CONTRAST, 06/05/2009, 10:55. FINDINGS: Image quality: Excellent. ABDOMEN: Lung bases: Lung bases are clear. Heart size is normal. Solid organs: Liver is normal in size and enhancement. Gallbladder appears normal. Biliary system is non dilated. Pancreas enhances normally. Spleen is normal in size and enhancement. No adrenal nodules. There is hydronephrosis at the right kidney and hydroureter extending inferiorly towards the bladder. The left kidney is drained by a double pigtail ureteral catheter and both of the kidneys show no evidence of internal abscess formation, but there is mild urothelial enhancement at each urinary tract, potentially indicating urinary tract infection, pyelonephritis.. Peritoneum and bowel: Bowel loops demonstrate normal wall thickness and caliber. No free fluid or air. Nodes and vessels: No retroperitoneal or mesenteric adenopathy by size criteria. Aorta and inferior vena cava are normal in size. Miscellaneous: No ventral hernias. PELVIS: Genitourinary: The bladder is drained by a [place]icea catheter centrally positioned in the double pigtail left ureteral catheter has its k traversing into the bladder lumen. A definite source of right-sided hydronephrosis and hydroureter currently is not seen.. Miscellaneous: No inguinal hernias or adenopathy. Bones: No suspicious bony lesions. No vertebral body compression fractures. IMPRESSION: A no urinary tract stone is found. A double pigtail left ureteral catheter appears in normal position. A Licea catheter is in place completely emptying the bladder lumen. There is hydronephrosis on the right and hydroureter which is moderate in overall severity and the etiology is uncertain. Urinary tract infection is suspected bilaterally in a pattern of relatively subtle urothelial thickening and mild enhancement. No mass lesion found. Dictated by: Aayush Adame M.D. on 08/23/2018 at 22:04 MDM Narrative Medical decision making narrative: patient signed out to me by Mao HUGGINS. patient seen evaluated by myself. Waiting for CT. Blood work is reassuring. She states the hematuria recently started she has also been drinking a lot, grand juice. Urine is now clear in the tube but there is obvious pink color in the Licea bag. She has not had any fever or infectious signs. CT does not show any acute abnormality. Patient states that she has had bilateral flank pain more on the right than the left ongoing for awhile and remain unchanged. His no kidney stone noted. 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 At this time recommend waiting for culture and sensitivity to return before treating. I have discussed this decision with both patient and . They are agreeable patient would like to go home. I recommend following up with local urologist Whom she is closely followed with. Discharge Plan Departure Patient Disposition: Home Clinical Impression: Urinary tract infection Qualifiers: Urinary tract infection type: acute cystitis Hematuria presence: with hematuria Qualified Code(s): N30.01 - Acute cystitis with hematuria Discharge Date/Time: 08/23/18 23:39 Interventions: ED Discharge Assessment Last Done: 08/23/18 23:37 Instructions: DI for Urinary Tract Infection (UTI) Activity Restrictions/Additional Instructions: *You have been diagnosed with UTI *What to do: at this time due to frequent bladder infections recommend waiting for culture and sensitivity to return before starting on antibiotics. Blood work is reassuring. Increase fluid intake. *Continue to take medications as directed *Follow up with your primary care provider in 2-3 days *Return to ER if you should have, Increasing bloody urine, fever, not taking in oral fluids, confusion or any new, worsening or concerning symptoms Prescriptions: No Action loperamide 2 mg Capsule 2 cap Feeding Tube Q4H MDD 16 MG PRN (Reason: Loose Stool) RF: 0 cetirizine 10 mg Tablet 1 tab Feeding Tube DAILY PRN (Reason: Allergy Symptoms) RF: 0 miconazole nitrate 2 % cream 1 applic Topical 3-4XD RF: 0 methadone 10 mg Tablet 15 mg Feeding Tube TID RF: 0 thiamine HCl (vitamin B1) 100 mg Tablet 100 mg Feeding Tube DAILY RF: 0 acetaminophen 500 mg Tablet 1 - 2 tab Feeding Tube PRN MDD 3000 mg PRN (Reason: Pain, Mild) RF: 0 levothyroxine 100 mcg tablet 1 tab Feeding Tube DAILY RF: 0 trazodone 100 mg tablet 1 tab Feeding Tube BEDTIME RF: 0 polyethylene glycol 3350 [Miralax] 17 gram/dose Powder 8.5 g Feeding Tube DAILY PRN (Reason: Constipation) RF: 0 sertraline 20 mg/mL concentrate 7.5 ml Feeding Tube QPM RF: 0 ondansetron 4 mg Tablet,Disintegrating 1 tab Feeding Tube PRN PRN (Reason: Nausea) RF: 0 btjrcam-trqafxgcrfqbu-pbbcwifx [Excedrin Migraine] 250-250-65 mg Tablet 2 tab Feeding Tube DAILY PRN (Reason: Migraine Headache) RF: 0 water Liquid 100 ml PO QID RF: 0 pregabalin 150 mg capsule 1 cap Feeding Tube TID RF: 0 fluticasone furoate 27.5 mcg/actuation [place],Suspension 1 spray Intranasal DAILY PRN (Reason: Allergy Symptoms) RF: 0 diclofenac sodium 1 % gel 2 g Topical TID PRN (Reason: RIGHT SHOULDER PAIN) RF: 0 miconazole nitrate 2 % (100 mg)- 2 % (9 gram) Comb Pack,Prefill Appl, Cream 1 applic Vaginal PRN PRN (Reason: YEAST INFECTION) RF: 0 oxycodone 5 mg tablet 1 - 2 tab Feeding Tube Q3H MDD 8 tabs PRN (Reason: Pain, Severe) RF: 0 dextromethorphan-guaifenesin [Tussin DM] 10-100 mg/5 mL Syrup 10 ml Feeding Tube Q4H PRN (Reason: Cough) RF: 0 Referrals: Danielle Senior ARNP [Primary Care Provider] - Silvestre Myles MD [Non-Staff] - <Kirsten Kelly DO - Last Filed: 08/24/18 02:24> Cosign ED Attending Darlingature Attestation: I was immediately available in the department for consultation. Documentation has been reviewed. I agree with assessment and plan.
[2018-08-23 20:42] LABS: Bacteria Urine None Seen
[2018-08-23 20:43] LABS: Appearance Urine UA CLOUDY; Bilirubin Urine UA NEGATIVE (NEGATIVE); Color Urine UA YELLOW; Glucose Urine UA NEGATIVE (Negative); Ketones Urine UA NEGATIVE (NEGATIVE); Leukocyte Esterase Urine UA 2+ (NEGATIVE); Nitrite Urine UA POSITIVE (Negative); Occult Blood Urine UA 3+ (Negative); Protein Urine UA 2+ (Negative); Urobilinogen Urine UA 0.2 E.U./dL (0.2)
--- NOTE | 2018-08-23 20:43 | DI.CT.S_ITS ---
PROCEDURE: CT ABDOMEN PELVIS W CON INDICATIONS: Flank pain hematuria and left lower quadrant pain TECHNIQUE: After the administration of intravenous contrast, 5 mm thick sections acquired from the diaphragm to the symphysis. 5 mm coronal and sagittal reformats were acquired. For radiation dose reduction, the following was used: automated exposure control, adjustment of mA and/or kV according to patient size. COMPARISON: Outside Film, CR, XR CHEST 2 VIEWS, 07/26/2018, 18:41. [facility], CT, CT ANGIO CHEST PE, 06/22/2018, 12:49. [facility], CT, ABDOMEN/PELVIS WITH CONTRAST, 06/05/2009, 10:55. FINDINGS: Image quality: Excellent. ABDOMEN: Lung bases: Lung bases are clear. Heart size is normal. Solid organs: Liver is normal in size and enhancement. Gallbladder appears normal. Biliary system is non dilated. Pancreas enhances normally. Spleen is normal in size and enhancement. No adrenal nodules. There is hydronephrosis at the right kidney and hydroureter extending inferiorly towards the bladder. The left kidney is drained by a double pigtail ureteral catheter and both of the kidneys show no evidence of internal abscess formation, but there is mild urothelial enhancement at each urinary tract, potentially indicating urinary tract infection, pyelonephritis.. Peritoneum and bowel: Bowel loops demonstrate normal wall thickness and caliber. No free fluid or air. Nodes and vessels: No retroperitoneal or mesenteric adenopathy by size criteria. Aorta and inferior vena cava are normal in size. Miscellaneous: No ventral hernias. PELVIS: Genitourinary: The bladder is drained by a Licea catheter centrally positioned in the double pigtail left ureteral catheter has its k traversing into the bladder lumen. A definite source of right-sided hydronephrosis and hydroureter currently is not seen.. Miscellaneous: No inguinal hernias or adenopathy. Bones: No suspicious bony lesions. No vertebral body compression fractures. IMPRESSION: A no urinary tract stone is found. A double pigtail left ureteral catheter appears in normal position. A Licea catheter is in place completely emptying the bladder lumen. There is hydronephrosis on the right and hydroureter which is moderate in overall severity and the etiology is uncertain. Urinary tract infection is suspected bilaterally in a pattern of relatively subtle urothelial thickening and mild enhancement. No mass lesion found. Dictated by: Aayush Adame M.D. on 08/23/2018 at 22:04 Approved by: Aayush Adame M.D. on 08/23/2018 at 22:08
[2018-08-23 20:52] LABS: Culture Indicated Urine Specimen Cultured; RBC Urine 10-30/HPF (0-5/HPF); Transitional Epi Cells Urine 1-5/HPF (0-5/HPF); WBC Urine 10-30/HPF (0-5/HPF)
[2018-08-23 21:01] VITALS: BP 92/59; PULSE 78; RESP 15; O2SAT 96
[2018-08-23 21:05] LABS: Add Manual Diff / Slide Review NO; Basophils Absolute Auto 0 /uL (0-100); Basophils Percent Auto 0.6 % (0-2); Eosinophils Absolute Auto 500 /uL (0-450); Hematocrit 33.6 % (36-46); Hemoglobin 10.5 g/dL (12.0-16.0); Lymphocytes Absolute Auto 1200 /uL (1100-4500); Mean Corpuscular HGB Conc 31.3 % (30-36); Mean Corpuscular Hemoglobin 23.7 PG (26-34); Mean Corpuscular Volume 75.7 fL (80-100); Monocytes Absolute Auto 400 /uL (0-900); Monocytes Percent Auto 6.6 % (3-14); Neutrophils Absolute Auto 3700 /uL (1500-7000); Neutrophils Percent Auto 63.8 % (50-75); Platelet Count 219 X10^3/uL (150-400); Red Blood Cell Count 4.44 X10^6/uL (4.0-5.2); Red Cell Distribution Width 18.1 % (11.6-14.8); White Blood Cell Count 5.8 X10^3/uL (4.5-11.0)
[2018-08-23] MEDS: SODIUM CHLORIDE 0.9% 1,000 ML 1000 ML IV ×2 (21:06→22:44)
[2018-08-23 21:13] LABS: Prothrombin Time 11.8 SECONDS (10.1-12.7)
[2018-08-23 21:15] VITALS: BP 92/59; PULSE 79; O2SAT 93
[2018-08-23 21:18] LABS: Lactate (Lactic Acid) 0.8 mmol/L (0.7-2.1)
[2018-08-23 21:20] LABS: Alanine Aminotransferase 20 IU/L (9-52); Albumin 3.9 g/dL (3.5-5.0); Albumin Globulin Ratio 1.1 (1.0-2.8); Alkaline Phosphatase 90 U/L (38-126); Aspartate Aminotransferase 19 IU/L (14-36); BUN Creatinine Ratio 13.1 (6-22); Bilirubin Total 0.2 mg/dL (0.2-1.3); Blood Urea Nitrogen 17 mg/dL (7-17); Calcium 8.8 mg/dL (8.4-10.2); Carbon Dioxide 25 mmol/L (22-32); Chloride 100 mmol/L (98-107); Estimated Glomerular Filt Rate 42.8 mL/min (>60); Globulin 3.6 g/dL (1.7-4.1); Glucose 92 mg/dL (70-100); HEMOLYSIS < 15 (0-50); Potassium 4.8 mmol/L (3.4-5.1); Sodium 135 mmol/L (137-145); Total Protein 7.5 g/dL (6.3-8.2)
[2018-08-23 21:35] LABS: Procalcitonin < 0.05 ng/mL (<0.5)
--- NOTE | 2018-08-23 21:43 | ED_ITS ---
HPI - Female Genitourinary <DANLIO Casey - Last Filed: 08/23/18 21:59> General Chief complaint: Urogenital-Female Stated complaint: blood in urine Time Seen by Provider: 08/23/18 20:23 Source: patient and family Mode of arrival: wheelchair Limitations: no limitations History of Present Illness HPI Narrative: 53-year-old female with history of cervical cancer and is a former smoker here for complaint of having blood in her urine over the past couple of days. 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 She has a significant history of kidney and ureter issues with frequent urinary tract infections secondary to radiation while treating her cervical cancer. She has recently had a stent placed in the left ureter to facilitate better urine passage. She states she has some left flank pain. She also reports having left abdominal pain as well. No fevers. Positive p.o. intake. No nausea vomiting. She denies any trauma. She is currently followed by Urology at [facility] Dr. Myles. She does have a suprapubic urinary catheter that is draining well at this timeframe. MD Complaint: other Related Data Home Medications Medication Instructions Recorded Confirmed acetaminophen 1 - 2 tab FEEDING TUBE PRN PRN MDD 05/04/18 05/04/18 3000 mg vqkwibq-cvqwgmyspfpfx-omwhkswj 2 tab FEEDING TUBE DAILY PRN 05/04/18 05/04/18 [Excedrin Migraine] cetirizine 1 tab FEEDING TUBE DAILY PRN 05/04/18 05/04/18 dextromethorphan-guaifenesin 10 ml FEEDING TUBE Q4H PRN 05/04/18 05/04/18 [Tussin DM] diclofenac sodium 2 g TOPICAL TID PRN 05/04/18 05/04/18 fluticasone furoate 1 spray INTRANASAL DAILY PRN 05/04/18 05/04/18 levothyroxine 1 tab FEEDING TUBE DAILY 05/04/18 05/04/18 loperamide 2 cap FEEDING TUBE Q4H PRN MDD 16 05/04/18 05/04/18 MG methadone 15 mg FEEDING TUBE TID 05/04/18 05/04/18 miconazole nitrate 1 applic TOPICAL 3-4XD 05/04/18 05/04/18 miconazole nitrate 1 applic VAGINAL PRN PRN 05/04/18 05/04/18 ondansetron 1 tab FEEDING TUBE PRN PRN 05/04/18 05/04/18 oxycodone 1 - 2 tab FEEDING TUBE Q3H PRN MDD 05/04/18 05/04/18 8 tabs polyethylene glycol 3350 [Miralax] 8.5 g FEEDING TUBE DAILY PRN 05/04/18 05/04/18 pregabalin 1 cap FEEDING TUBE TID 05/04/18 05/04/18 sertraline 7.5 ml FEEDING TUBE QPM 05/04/18 05/04/18 thiamine HCl (vitamin B1) 100 mg FEEDING TUBE DAILY 05/04/18 05/04/18 trazodone 1 tab FEEDING TUBE BEDTIME 05/04/18 05/04/18 water 100 ml PO QID 05/04/18 05/04/18 Allergies Allergy/AdvReac Type Severity Reaction Status Date / Time clindamycin Allergy Severe Anaphylaxis Verified 08/23/18 20:30 Penicillins Allergy Severe Anaphylaxis Verified 08/23/18 20:30 baclofen Allergy Verified 08/23/18 21:32 Review of Systems <DANILO Casey - Last Filed: 08/23/18 21:59> Constitutional Denies chills, Denies fever(s), Denies lethargy and Denies weakness Eyes Denies change in vision, Denies eye discharge, Denies irritation and Denies loss of vision ENT Ears, Nose, Mouth, and Throat: Denies change in voice, Denies neck pain and Denies sore throat Cardiovascular Denies chest pain, Denies irregular heart rhythm, Denies lightheadedness, Denies palpitations, Denies dyspnea, Denies dyspnea on exertion and Denies orthopnea Respiratory Denies cough, Denies dyspnea, Denies dyspnea on exertion and Denies wheezing Gastrointestinal Gastrointestinal: Denies abdominal pain, Denies change in bowel habits, Denies diarrhea, Denies nausea and Denies vomiting Comments: Left lower quadrant pain Genitourinary Denies hematuria, Denies flank pain, Denies urinary incontinence and Denies urinary urgency Comments: Left flank pain and hematuria Musculoskeletal Denies neck pain Integumentary/Breasts Denies pruritus, Denies erythema, Denies rash and Denies wounds Neurologic Denies confusion, Denies loss of vision and Denies weakness Psychiatric Denies anxiety, Denies confusion, Denies depression, Denies homicidal ideation and Denies suicidal ideation Endocrine Denies palpitations Allergic/Immunologic Denies wheezing PFSH <DANILO Casey - Last Filed: 08/23/18 21:59> Medical History Bowel obstruction (Acute) Creutzfeldt Evans disease (Acute) H/O: hysterectomy (Acute) Hypothyroid (Acute) Jejunostomy tube present (Acute) Ovarian cancer (Acute) Reflux esophagitis (Acute) Uterine cancer (Acute) Surgical History H/O fasciotomy (Acute) H/O left knee surgery (Acute) Social History details: Lives in Adult Care facility Smoking Status: Former smoker alcohol intake: never Social History details: Lives in Adult Care facility Smoking Status: Former smoker alcohol intake: never Exam <DANILO Casey - Last Filed: 08/23/18 21:59> Initial Vital Signs Initial Vital Signs: Vital Signs Temperature 98.7 F 08/23/18 20:30 Pulse Rate 102 H 08/23/18 20:30 Respiratory Rate 15 08/23/18 20:30 Blood Pressure 83/66 L 08/23/18 20:30 Pulse Oximetry 92 08/23/18 20:30 Const General: cooperative Nutritional Appearance: well nourished Orientation: alert, awake, oriented x3 and not confused [facility] Mouth: oral mucosae normal and moist mucous membranes Eyes General: appearance normal, both eyes and all related structures Eyelids: eyelids normal Conjunctivae: conjunctivae normal Sclera: sclerae normal Pupils: fixed (Pupils neuro and affects presents as due to opiate pain medication) bilaterally EOM: EOM intact bilaterally Cardio Rate: regular rate Rhythm: regular rhythm Heart Sounds: no click, no gallops, no murmurs and no rubs Pulses: normal peripheral pulses GI Inspection: non-distended Palpation: soft, no hepatosplenomegaly, No guarding, No pulsatile mass and tende r (Tenderness left lower quadrant area.) Auscultation: normal bowel sounds Other: Suprapubic catheter site with no signs of infection. General: No CVA tenderness Skin General: no rashes or lesions noted, No jaundice and No petechiae Neuro General: alert, oriented x3, gait normal and no focal motor deficits Speech: speech normal <Kirsten Kelly DO - Last Filed: 08/24/18 02:24> Initial Vital Signs Initial Vital Signs: Vital Signs Temperature 98.7 F 08/23/18 20:30 Pulse Rate 102 H 08/23/18 20:30 Respiratory Rate 15 08/23/18 20:30 Blood Pressure 83/66 L 08/23/18 20:30 Pulse Oximetry 92 08/23/18 20:30 Course <DANILO Casey - Last Filed: 08/23/18 21:59> Orders Ordered: ED Orders 08/23/18 20:40 Urinalysis and Microscopic Stat Urine Culture Stat 08/23/18 20:43 CT abdomen pelvis w con Stat 08/23/18 20:55 Complete Blood Count AUTO DIFF Stat Comprehensive Metabolic Panel Stat Lactate (Lactic Acid) Stat Procalcitonin Stat Prothrombin Time INR Stat 08/23/18 21:12 Blood Culture Stat Discontinued Medications Sodium Chloride (Normal Saline 0.9%) 1,000 mls @ 1,000 mls/hr IV BOLUS ONE Stop: 08/23/18 21:36 Last Admin: 08/23/18 22:20 Dose: Not Given Sodium Chloride (Normal Saline 0.9%) 1,000 mls @ 1,000 mls/hr IV BOLUS ONE Stop: 08/23/18 21:47 Last Infusion: 08/23/18 22:45 Dose: 0 mls/hr Admin: 08/23/18 21:06 Dose: 1,000 mls/hr Sodium Chloride (Normal Saline 0.9%) 1,000 mls @ 1,000 mls/hr IV BOLUS ONE Stop: 08/23/18 23:41 Last Infusion: 08/23/18 23:37 Dose: 0 mls/hr Admin: 08/23/18 22:44 Dose: 1,000 mls/hr Vital Signs - 8 hr 08/23/18 20:30 08/23/18 21:01 08/23/18 21:15 Temperature 98.7 F Pulse Rate 102 H 78 79 Respiratory Rate 15 15 Blood Pressure 83/66 L Blood Pressure [Right Arm] 92/59 L 92/59 L Pulse Oximetry 92 96 93 08/23/18 22:00 08/23/18 22:44 08/23/18 23:00 Temperature 97.6 F Pulse Rate 71 68 Respiratory Rate 17 16 Blood Pressure Blood Pressure [Right Arm] 102/71 105/73 115/62 Pulse Oximetry 96 96 <Kirsten Kelly DO - Last Filed: 08/24/18 02:24> Orders Ordered: ED Orders 08/23/18 20:40 Urinalysis and Microscopic Stat Urine Culture Stat 08/23/18 20:43 CT abdomen pelvis w con Stat 08/23/18 20:55 Complete Blood Count AUTO DIFF Stat Comprehensive Metabolic Panel Stat Lactate (Lactic Acid) Stat Procalcitonin Stat Prothrombin Time INR Stat 08/23/18 21:12 Blood Culture Stat Discontinued Medications Sodium Chloride (Normal Saline 0.9%) 1,000 mls @ 1,000 mls/hr IV BOLUS ONE Stop: 08/23/18 21:36 Last Admin: 08/23/18 22:20 Dose: Not Given Sodium Chloride (Normal Saline 0.9%) 1,000 mls @ 1,000 mls/hr IV BOLUS ONE Stop: 08/23/18 21:47 Last Infusion: 08/23/18 22:45 Dose: 0 mls/hr Admin: 08/23/18 21:06 Dose: 1,000 mls/hr Sodium Chloride (Normal Saline 0.9%) 1,000 mls @ 1,000 mls/hr IV BOLUS ONE Stop: 08/23/18 23:41 Last Infusion: 08/23/18 23:37 Dose: 0 mls/hr Admin: 08/23/18 22:44 Dose: 1,000 mls/hr Vital Signs - 8 hr 08/23/18 20:30 08/23/18 21:01 08/23/18 21:15 Temperature 98.7 F Pulse Rate 102 H 78 79 Respiratory Rate 15 15 Blood Pressure 83/66 L Blood Pressure [Right Arm] 92/59 L 92/59 L Pulse Oximetry 92 96 93 08/23/18 22:00 08/23/18 22:44 08/23/18 23:00 Temperature 97.6 F Pulse Rate 71 68 Respiratory Rate 17 16 Blood Pressure Blood Pressure [Right Arm] 102/71 105/73 115/62 Pulse Oximetry 96 96 MDM - Female Genitourinary <DANILO Casey - Last Filed: 08/23/18 21:59> Lab Data Result diagrams: 08/23/18 20:55 08/23/18 20:55 Lab Results 08/23/18 08/23/18 08/23/18 Range/Units 20:40 20:55 20:55 WBC 5.8 (4.5-11.0) X10^3/uL RBC 4.44 (4.0-5.2) X10^6/uL Hgb 10.5 L (12.0-16.0) g/dL Hct 33.6 L (36-46) % MCV 75.7 L (80-100) fL MCH 23.7 L (26-34) PG MCHC 31.3 (30-36) % RDW 18.1 H (11.6-14.8) % Plt Count 219 (150-400) X10^3/uL Neut % (Auto) 63.8 (50-75) % Lymph % (Auto) 21.0 L (25-40) % [place] % (Auto) 6.6 (3-14) % Eos % (Auto) 8.0 H (2-4) % Baso % (Auto) 0.6 (0-2) % Neut # (Auto) 3700 (4136-8023) /uL Lymph # (Auto) 1200 (0755-3078) /uL [place] # (Auto) 400 (0-900) /uL Eos # (Auto) 500 H (0-450) /uL Baso # (Auto) 0 (0-100) /uL PT 11.8 (10.1-12.7) SECONDS INR 1.0 (0.9-1.3) Sodium (137-145) mmol/L Potassium (3.4-5.1) mmol/L Chloride (98-107) mmol/L Carbon Dioxide (22-32) mmol/L BUN (7-17) mg/dL Creatinine (0.52-1.04) mg/dL Estimated GFR (>60) mL/min BUN/Creatinine Ratio (6-22) Glucose (70-100) mg/dL Lactate (0.7-2.1) mmol/L Calcium (8.4-10.2) mg/dL Total Bilirubin (0.2-1.3) mg/dL AST (14-36) IU/L ALT (9-52) IU/L Alkaline Phosphatase (38-126) U/L Total Protein (6.3-8.2) g/dL Albumin (3.5-5.0) g/dL Globulin (1.7-4.1) g/dL Albumin/Globulin Ratio (1.0-2.8) Procalcitonin (<0.5) ng/mL Urine Color Yellow Urine Appearance Cloudy Urine pH 7.0 (4.5-8.0) Ur Specific [place] 1.010 (1.000-1.035) Urine Protein 2+ H (Negative) Urine Glucose (UA) Negative (Negative) g/dL Urine Ketones Negative (NEGATIVE) Urine Occult Blood 3+ H (Negative) Urine Nitrate Positive H (Negative) Urine Bilirubin Negative (NEGATIVE) Urine Urobilinogen 0.2 (0.2) E.U./dL Ur Leukocyte Esterase 2+ H (NEGATIVE) Urine RBC 10-30/hpf H (0-5/HPF) Urine WBC 10-30/hpf H (0-5/HPF) Ur Transition Epith Cell 1-5/hpf (0-5/HPF) Urine Bacteria None seen (None) Ur Culture Indicated? Specimen cultured 08/23/18 08/23/18 08/23/18 Range/Units 20:55 20:55 20:55 WBC (4.5-11.0) X10^3/uL RBC (4.0-5.2) X10^6/uL Hgb (12.0-16.0) g/dL Hct (36-46) % MCV (80-100) fL MCH (26-34) PG MCHC (30-36) % RDW (11.6-14.8) % Plt Count (150-400) X10^3/uL Neut % (Auto) (50-75) % Lymph % (Auto) (25-40) % [place] % (Auto) (3-14) % Eos % (Auto) (2-4) % Baso % (Auto) (0-2) % Neut # (Auto) (1902-0651) /uL Lymph # (Auto) (9548-2699) /uL [place] # (Auto) (0-900) /uL Eos # (Auto) (0-450) /uL Baso # (Auto) (0-100) /uL PT (10.1-12.7) SECONDS INR (0.9-1.3) Sodium 135 L (137-145) mmol/L Potassium 4.8 (3.4-5.1) mmol/L Chloride 100 (98-107) mmol/L Carbon Dioxide 25 (22-32) mmol/L BUN 17 (7-17) mg/dL Creatinine 1.30 H (0.52-1.04) mg/dL Estimated GFR 42.8 L (>60) mL/min BUN/Creatinine Ratio 13.1 (6-22) Glucose 92 (70-100) mg/dL Lactate 0.8 (0.7-2.1) mmol/L Calcium 8.8 (8.4-10.2) mg/dL Total Bilirubin 0.2 (0.2-1.3) mg/dL AST 19 (14-36) IU/L ALT 20 (9-52) IU/L Alkaline Phosphatase 90 (38-126) U/L Total Protein 7.5 (6.3-8.2) g/dL Albumin 3.9 (3.5-5.0) g/dL Globulin 3.6 (1.7-4.1) g/dL Albumin/Globulin Ratio 1.1 (1.0-2.8) Procalcitonin < 0.05 (<0.5) ng/mL Urine Color Urine Appearance Urine pH (4.5-8.0) Ur Specific [place] (1.000-1.035) Urine Protein (Negative) Urine Glucose (UA) (Negative) g/dL Urine Ketones (NEGATIVE) Urine Occult Blood (Negative) Urine Nitrate (Negative) Urine Bilirubin (NEGATIVE) Urine Urobilinogen (0.2) E.U./dL Ur Leukocyte Esterase (NEGATIVE) Urine RBC (0-5/HPF) Urine WBC (0-5/HPF) Ur Transition Epith Cell (0-5/HPF) Urine Bacteria (None) Ur Culture Indicated? [facility] Narrative Medical decision making narrative: CBC was obtained and shows hemoglobin and hematocrit at 10 and 33 however this is normal for her. WBCs are unremarkable. Chemistry panel shows creatinine at 1.3 and GFR at 42.8. Lactate was normal. Procalcitonin was normal. INR was unremarkable at 1. Urinalysis indicates urinary tract infection. CT of the abdomen and pelvis was obtained and results are pending. Due to change of shift care was turned over to Dr. Kelly <Kirsten Kelly, DO - Last Filed: 08/24/18 02:24> Lab Data Attestation: I reviewed the patient's lab results. Lab Results 08/23/18 08/23/18 08/23/18 Range/Units 20:40 20:55 20:55 WBC 5.8 (4.5-11.0) X10^3/uL RBC 4.44 (4.0-5.2) X10^6/uL Hgb 10.5 L (12.0-16.0) g/dL Hct 33.6 L (36-46) % MCV 75.7 L (80-100) fL MCH 23.7 L (26-34) PG MCHC 31.3 (30-36) % RDW 18.1 H (11.6-14.8) % Plt Count 219 (150-400) X10^3/uL Neut % (Auto) 63.8 (50-75) % Lymph % (Auto) 21.0 L (25-40) % [place] % (Auto) 6.6 (3-14) % Eos % (Auto) 8.0 H (2-4) % Baso % (Auto) 0.6 (0-2) % Neut # (Auto) 3700 (7695-4524) /uL Lymph # (Auto) 1200 (0055-3242) /uL [place] # (Auto) 400 (0-900) /uL Eos # (Auto) 500 H (0-450) /uL Baso # (Auto) 0 (0-100) /uL PT 11.8 (10.1-12.7) SECONDS INR 1.0 (0.9-1.3) Sodium (137-145) mmol/L Potassium (3.4-5.1) mmol/L Chloride (98-107) mmol/L Carbon Dioxide (22-32) mmol/L BUN (7-17) mg/dL Creatinine (0.52-1.04) mg/dL Estimated GFR (>60) mL/min BUN/Creatinine Ratio (6-22) Glucose (70-100) mg/dL Lactate (0.7-2.1) mmol/L Calcium (8.4-10.2) mg/dL Total Bilirubin (0.2-1.3) mg/dL AST (14-36) IU/L ALT (9-52) IU/L Alkaline Phosphatase (38-126) U/L Total Protein (6.3-8.2) g/dL Albumin (3.5-5.0) g/dL Globulin (1.7-4.1) g/dL Albumin/Globulin Ratio (1.0-2.8) Procalcitonin (<0.5) ng/mL Urine Color Yellow Urine Appearance Cloudy Urine pH 7.0 (4.5-8.0) Ur Specific [place] 1.010 (1.000-1.035) Urine Protein 2+ H (Negative) Urine Glucose (UA) Negative (Negative) g/dL Urine Ketones Negative (NEGATIVE) Urine Occult Blood 3+ H (Negative) Urine Nitrate Positive H (Negative) Urine Bilirubin Negative (NEGATIVE) Urine Urobilinogen 0.2 (0.2) E.U./dL Ur Leukocyte Esterase 2+ H (NEGATIVE) Urine RBC 10-30/hpf H (0-5/HPF) Urine WBC 10-30/hpf H (0-5/HPF) Ur Transition Epith Cell 1-5/hpf (0-5/HPF) Urine Bacteria None seen (None) Ur Culture Indicated? Specimen cultured 08/23/18 08/23/18 08/23/18 Range/Units 20:55 20:55 20:55 WBC (4.5-11.0) X10^3/uL RBC (4.0-5.2) X10^6/uL Hgb (12.0-16.0) g/dL Hct (36-46) % MCV (80-100) fL MCH (26-34) PG MCHC (30-36) % RDW (11.6-14.8) % Plt Count (150-400) X10^3/uL Neut % (Auto) (50-75) % Lymph % (Auto) (25-40) % [place] % (Auto) (3-14) % Eos % (Auto) (2-4) % Baso % (Auto) (0-2) % Neut # (Auto) (3916-6889) /uL Lymph # (Auto) (4709-2977) /uL [place] # (Auto) (0-900) /uL Eos # (Auto) (0-450) /uL Baso # (Auto) (0-100) /uL PT (10.1-12.7) SECONDS INR (0.9-1.3) Sodium 135 L (137-145) mmol/L Potassium 4.8 (3.4-5.1) mmol/L Chloride 100 (98-107) mmol/L Carbon Dioxide 25 (22-32) mmol/L BUN 17 (7-17) mg/dL Creatinine 1.30 H (0.52-1.04) mg/dL Estimated GFR 42.8 L (>60) mL/min BUN/Creatinine Ratio 13.1 (6-22) Glucose 92 (70-100) mg/dL Lactate 0.8 (0.7-2.1) mmol/L Calcium 8.8 (8.4-10.2) mg/dL Total Bilirubin 0.2 (0.2-1.3) mg/dL AST 19 (14-36) IU/L ALT 20 (9-52) IU/L Alkaline Phosphatase 90 (38-126) U/L Total Protein 7.5 (6.3-8.2) g/dL Albumin 3.9 (3.5-5.0) g/dL Globulin 3.6 (1.7-4.1) g/dL Albumin/Globulin Ratio 1.1 (1.0-2.8) Procalcitonin < 0.05 (<0.5) ng/mL Urine Color Urine Appearance Urine pH (4.5-8.0) Ur Specific [place] (1.000-1.035) Urine Protein (Negative) Urine Glucose (UA) (Negative) g/dL Urine Ketones (NEGATIVE) Urine Occult Blood (Negative) Urine Nitrate (Negative) Urine Bilirubin (NEGATIVE) Urine Urobilinogen (0.2) E.U./dL Ur Leukocyte Esterase (NEGATIVE) Urine RBC (0-5/HPF) Urine WBC (0-5/HPF) Ur Transition Epith Cell (0-5/HPF) Urine Bacteria (None) Ur Culture Indicated? Imaging Data CT scan - abdomen: Radiologist's impression: PROCEDURE: CT ABDOMEN PELVIS W CON INDICATIONS: Flank pain hematuria and left lower quadrant pain TECHNIQUE: After the administration of intravenous contrast, 5 mm thick sections acquired from the diaphragm to the symphysis. 5 mm coronal and sagittal reformats were acquired. For radiation dose reduction, the following was used: automated exposure control, adjustment of mA and/or kV according to patient size. COMPARISON: Outside Film, CR, XR CHEST 2 VIEWS, 07/26/2018, 18:41. [facility], CT, CT ANGIO CHEST PE, 06/22/2018, 12:49. [facility], CT, ABDOMEN/PELVIS WITH CONTRAST, 06/05/2009, 10:55. FINDINGS: Image quality: Excellent. ABDOMEN: Lung bases: Lung bases are clear. Heart size is normal. Solid organs: Liver is normal in size and enhancement. Gallbladder appears normal. Biliary system is non dilated. Pancreas enhances normally. Spleen is normal in size and enhancement. No adrenal nodules. There is hydronephrosis at the right kidney and hydroureter extending inferiorly towards the bladder. The left kidney is draine d by a double pigtail ureteral catheter and both of the kidneys show no evidence of internal abscess formation, but there is mild urothelial enhancement at each urinary tract, potentially indicating urinary tract infection, pyelonephritis.. Peritoneum and bowel: Bowel loops demonstrate normal wall thickness and caliber. No free fluid or air. Nodes and vessels: No retroperitoneal or mesenteric adenopathy by size criteria. Aorta and inferior vena cava are normal in size. Miscellaneous: No ventral hernias. PELVIS: Genitourinary: The bladder is drained by a [place] catheter centrally positioned in the double pigtail left ureteral catheter has its k traversing into the bladder lumen. A definite source of right-sided hydronephrosis and hydroureter currently is not seen.. Miscellaneous: No inguinal hernias or adenopathy. Bones: No suspicious bony lesions. No vertebral body compression fractures. IMPRESSION: A no urinary tract stone is found. A double pigtail left ureteral catheter appears in normal position. A Licea catheter is in place completely emptying the bladder lumen. There is hydronephrosis on the right and hydroureter which is moderate in overall severity and the etiology is uncertain. Urinary tract infection is suspected b ilaterally in a pattern of relatively subtle urothelial thickening and mild enhancement. No mass lesion found. Dictated by: Aayush Adame M.D. on 08/23/2018 at 22:04 MDM Narrative Medical decision making narrative: patient signed out to me by Mao HUGGINS. patient seen evaluated by myself. Waiting for CT. Blood work is reassuring. She states the hematuria recently started she has also been drinking a lot, gra nd juice. Urine is now clear in the tube but there is obvious pink color in the Licea bag. She has not had any fever or infectious signs. CT does not show any acute abnormality. Patient states that she has had bilateral flank pain more on the right than the left ongoing for awhile and remain unchanged. His no kidney stone noted. 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 At this time recommend waiting for culture and sensitivity to return before treating. I have discussed this decision with both patient and . They are agreeable patient would like to go home. I recommend following up with local urologist Whom she is closely followed with. Discharge Plan Departure Patient Disposition: Home Clinical Impression: Urinary tract infection Qualifiers: Urinary tract infection type: acute cystitis Hematuria presence: with hematuria Qualified Code(s): N30.01 - Acute cystitis with hematuria Discharge Date/Time: 08/23/18 23:39 Interventions: ED Discharge Assessment Last Done: 08/23/18 23:37 Instructions: DI for Urinary Tract Infection (UTI) Activity Restrictions/Additional Instructions: *You have been diagnosed with UTI *What to do: at this time due to frequent bladder infections recommend waiting for culture and sensitivity to return before starting on antibiotics. Blood work is reassuring. Increase fluid intake. *Continue to take medications as directed *Follow up with your primary care provider in 2-3 days *Return to ER if you should have, Increasing bloody urine, fever, not taking in oral fluids, confusion or any new, worsening or concerning symptoms Prescriptions: No Action loperamide 2 mg Capsule 2 cap Feeding Tube Q4H MDD 16 MG PRN (Reason: Loose Stool) RF: 0 cetirizine 10 mg Tablet 1 tab Feeding Tube DAILY PRN (Reason: Allergy Symptoms) RF: 0 miconazole nitrate 2 % cream 1 applic Topical 3-4XD RF: 0 methadone 10 mg Tablet 15 mg Feeding Tube TID RF: 0 thiamine HCl (vitamin B1) 100 mg Tablet 100 mg Feeding Tube DAILY RF: 0 acetaminophen 500 mg Tablet 1 - 2 tab Feeding Tube PRN MDD 3000 mg PRN (Reason: Pain, Mild) RF: 0 levothyroxine 100 mcg tablet 1 tab Feeding Tube DAILY RF: 0 trazodone 100 mg tablet 1 tab Feeding Tube BEDTIME RF: 0 polyethylene glycol 3350 [Miralax] 17 gram/dose Powder 8.5 g Feeding Tube DAILY PRN (Reason: Constipation) RF: 0 sertraline 20 mg/mL concentrate 7.5 ml Feeding Tube QPM RF: 0 ondansetron 4 mg Tablet,Disintegrating 1 tab Feeding Tube PRN PRN (Reason: Nausea) RF: 0 hdudlal-vtpitnavxhfjs-qmrqhcsk [Excedrin Migraine] 250-250-65 mg Tablet 2 tab Feeding Tube DAILY PRN (Reason: Migraine Headache) RF: 0 water Liquid 100 ml PO QID RF: 0 pregabalin 150 mg capsule 1 cap Feeding Tube TID RF: 0 fluticasone furoate 27.5 mcg/actuation [place],Suspension 1 spray Intranasal DAILY PRN (Reason: Allergy Symptoms) RF: 0 diclofenac sodium 1 % gel 2 g Topical TID PRN (Reason: RIGHT SHOULDER PAIN) RF: 0 miconazole nitrate 2 % (100 mg)- 2 % (9 gram) Comb Pack,Prefill Appl, Cream 1 applic Vaginal PRN PRN (Reason: YEAST INFECTION) RF: 0 oxycodone 5 mg tablet 1 - 2 tab Feeding Tube Q3H MDD 8 tabs PRN (Reason: Pain, Severe) RF: 0 dextromethorphan-guaifenesin [Tussin DM] 10-100 mg/5 mL Syrup 10 ml Feeding Tube Q4H PRN (Reason: Cough) RF: 0 Referrals: Danielle Senior ARNP [Primary Care Provider] - Silvestre Myles MD [Non-Staff] - <Kirsten Kelly DO - Last Filed: 08/24/18 02:24> Cosign ED Attending Darlingature Attestation: I was immediately available in the department for consultation. Documentation has been reviewed. I agree with assessment and plan.
[2018-08-23 22:00] VITALS: BP 102/71; PULSE 71; RESP 17; O2SAT 96
[2018-08-23 22:44] VITALS: BP 105/73
[2018-08-23 23:00] VITALS: BP 115/62; PULSE 68; RESP 16; TEMP 36.4; O2SAT 96
== END 2018-08-23 23:39 | disposition home or self-care (01) ==
PROVIDERS: Nurse Practitioner Family; Emergency Provider Emergency Medicine; Family Provider Nurse Practitioner Gerontology; PCP Nurse Practitioner Gerontology
DX: N30.01 Acute cystitis with hematuria (principal)
CPT/HCPCS: 36415; 36591; 74177; 80053; 81001; 83605; 84145; 85025; 85610; 87040; 87077; 87086; 87186; 96360; 96361; 99284; 99285; Q9967